=== PATIENT | female | born 1980 | race Caucasian/White ===

== ENCOUNTER 2017-02-12 23:30 | Emergency (ER) | payer OTHER ==
[~2017-02-12] VITALS: Ht 170.2 cm; Wt 104.3 kg
[~2017-02-12 23:30] MED LIST: BACTRIM DS TAB1 EACH PO; CEPHALEXIN500 MG PO; CLINDAMYCIN HC300 MG PO; ESCITALOPRAM OX20 MG PO; LEVOTHYROXINE25 MCG PO; NORCO 5-325 TA1 EACH PO; OMEPRAZOLE20 MG PO; PERCOCET 5-3251 EACH PO; SERTRALINE HCL100 MG PO; SERTRALINE HCL50 MG PO; TRAMADOL HCL50 MG PO; VITAFOL-OB+DHA1 EACH PO; XANAX1 MG PO
[2017-06-29] MEDS ORDERED: XANAX0.5 MG PO (13:00)
== END 2017-02-13 00:08 | disposition home or self-care (01) ==
LOC: ED 23:30
DX: J20.9 Acute bronchitis, unspecified (principal); I10 Essential (primary) hypertension; F41.0 Panic disorder [episodic paroxysmal anxiety]; F17.200 Nicotine dependence, unspecified, uncomplicated; E89.0 Postprocedural hypothyroidism; Z98.51 Tubal ligation status; Z98.890 Other specified postprocedural states; Z88.1 Allergy status to other antibiotic agents; Z88.2 Allergy status to sulfonamides; Z79.899 Other long term (current) drug therapy
CPT/HCPCS: 99282

== ENCOUNTER 2018-01-03 06:50 | Day surgery (SDC) | payer OTHER ==
[~2018-01-03] VITALS: Ht 170.2 cm; Wt 109.3 kg
--- NOTE | ~2018-01-03 | OR ---
[facility] [address] [place] [place], [place] [address] Draft DATE OF OPERATION: 01/03/2018 SURGEON: Susan Samaniego MD APPLICATION PERFORMANCE ENGINEER: Fartun Kim DO PREOPERATIVE DIAGNOSES: Dysmenorrhea, dyspareunia. POSTOPERATIVE DIAGNOSES: Dysmenorrhea, dyspareunia with mild pelvic endometriosis. PROCEDURES: TLH, BSO, cystoscopy. ANESTHESIA: General ET. ESTIMATED BLOOD LOSS: 75 mL. DRAINS: Sr catheter. INDICATIONS AND FINDINGS: The patient is a 37-year-old female, 4, para 4-0-0-3, who has been having worsening problems with pelvic pain and dysmenorrhea as well as dyspareunia and now desires definitive treatment. She has not done well previously with OCPs and Mirena IUD. She has previously been sterilized. At the time of surgery, exam under anesthesia was normal. At the time of laparoscopy, there appeared to be some mild pelvic endometriosis over the right uterosacral and slightly lateral to this. Otherwise, the pelvis appeared normal. DESCRIPTION OF PROCEDURE: The patient was prepped and draped in the dorsal lithotomy position. A weighted speculum was placed and the anterior lip of the cervix was visualized and grasped with a single-tooth tenaculum. The uterus sounded to 9 cm. The endocervical canal was then dilated and a VCare cannula was placed and the balloon inflated at the fundus. The tenaculum and weighted speculum removed and the cup was fitted over the cervix and a PATIENT NAME: SUNSHINE JORGE OPERATIVE REPORT DATE OF : [birth year] REPORT #: [id number] PHYSICIAN: SUSAN SAMANIEGO MD PCP: SHIVANI SARAVIA REPORT IS CONFIDENTIAL AND NOT TO BE RELEASED WITHOUT AUTHORIZATION [facility] [address] [place], [place] [address] Draft locking cap fit into place. Attention was then directed above. The infraumbilical area was injected with 0.5% Marcaine plain. An incision was made with a knife and each layer was serially elevated and incised with the Metzenbaum scissors until the fascia was finally opened and identified. Stay sutures were placed. Following this, the peritoneum was opened bluntly. The Sky cannula was then placed and the balloon inflated and this was also tied into place. Placement of the scope confirmed proper positioning. CO2 was then introduced into the abdomen. Following this, the lateral ports were placed. These were placed lateral sightly below the umbilicus. These areas were transilluminated, injected with the Marcaine. An incision was made with a knife and the trocars were placed under direct vision. The left side port was a 5 mm port and a Veress needle was used on the right side followed by the expanding port. Following this, the pelvis was visualized and the procedure appeared appropriate. The procedure was begun on the patient's left side with serially coagulating and dividing the tube, utero-ovarian, and round ligament. Following this, the peritoneum anteriorly was incised allowing for partial bladder flap. The peritoneum was taken down posteriorly as well. The uterine vessels were then skeletonized and coagulated multiple times. She had the large bundles of vessels. Following this, further dissection was done posteriorly and anteriorly. Attention was then directed to the patient's right side where the same procedure was carried out. Again, the tube, utero-ovarian, and round ligament were serially coagulated and divided. The anterior leaf of the peritoneum was then incised allowing for completion of the bladder flap. The posterior peritoneum was taken down as well. There were multiple uterine vessels on this side as well, which required multiple coagulations and divisions. The pelvis was irrigated and inspected and further dissection was done both posteriorly and anteriorly and it was felt at that point that the specimen could be removed. The Sonicision device was used to separate the specimen. This began posteriorly and wrapped around the left side anteriorly and then again from posteriorly and wrapped around anteriorly from the right side. Following this, the specimen was removed from the vagina. The vaginal canal was then packed with a lap tape contained within a glove. Attention was redirected above and the cuff appeared to be hemostatic. The cuff was then closed with the Endo Stitch. This was begun at the patient's right uterosacral ligament incorporating the vaginal mucosa both posteriorly and anteriorly and this was taken across to the patient's left side and then back to the center. Following this, the tubes were removed on each side using the LigaSure [place] device as well. These were pulled out through the 10 port on the right side. Following this, the pelvis appeared to be hemostatic, but just somewhat raw. Evicel was then dribbled over the pedicles and across the cuff to aid in hemostasis. At this point, the instruments were removed from the abdomen after allowing as much CO2 as possible to escape. The balloons were deflated as well. The fascial incision was re-identified at the umbilicus and closed with a running suture of 0 Vicryl. The stay sutures were tied across as well. The skin incisions were closed with subcuticular sutures of 3-0 Vicryl Rapide. Attention was directed down below and the vaginal pack was removed. The Sr catheter was removed. She had received IV PATIENT NAME: SUNSHINE JORGE OPERATIVE REPORT DATE OF : 80 REPORT #: [id number] PHYSICIAN: SUSAN SAMANIEGO MD PCP: SHIVANI SARAVIA REPORT IS CONFIDENTIAL AND NOT TO BE RELEASED WITHOUT AUTHORIZATION [address], [place] [address] Draft fluorescein and cystoscopy was done using the 30-degree scope. The bladder was filled and seen to have no abnormalities. Both ureteral orifices were identified and clear urine was seen to freely egress from both of these. There was no fluorescein seen however. Following this, the bladder was drained and the Sr catheter replaced. The patient was taken to the recovery room in good condition. All sponge and needle counts were correct. Susan Samaniego MD PJW/MODL /[id number] cc: Fartun Kim DO Copies: FARTUN KIM DO ~ PATIENT NAME: SUNSHINE JORGE OPERATIVE REPORT DATE OF : 80 REPORT #: [id number] PHYSICIAN: SUSAN SAMANIEGO MD PCP: SHIVANI SARAVIA BOOK STORE ASSOCIATE REPORT IS CONFIDENTIAL AND NOT TO BE RELEASED WITHOUT AUTHORIZATION
[~2018-01-03 06:50] MED LIST changes: +XANAX0.5 MG PO
--- NOTE | 2018-01-03 11:48 | NUR ---
01/03/18 1148 Krysten Mckeon 1110 PT ARRIVED IN PACU WITH ORAL AIRWAY IN PLACE AND CHIN LIFT NEEDED. 1121 PT AWAKE. ORAL AIRWAY REMOVED. 1125 OXYGEN REMOVED. SATS 99% ON RA. C/O NAUSEA AND ABD PAIN 8. 1129 PHENERGAN 12.5MG GIVEN SLOW IVP. 1133 FENTANYL 25MCG GIVEN IVP. 1136 NO CHANGE IN PAIN LEVEL. FENTANYL 25MCG GIVEN IVP. 1140 DR AT BEDSIDE. FENTANYL 25MCG GIVEN IVP FOR 01/26 PAIN ON R SIDE OF ABD. WARM AIR ON PT. 1147 NO CHANGE IN PAIN LEVEL. FENTANYL 25MCG GIVEN IVP.
--- NOTE | 2018-01-03 13:09 | NUR ---
C/O PAIN 6/10 REQ MORE. MORPHINE 2MG GIVEN IV. HAS EATEN CRACKERS WILL GET PO MEDS SOON.
--- NOTE | 2018-01-03 13:22 | NUR ---
MORE RELAXED. EYES CLOSED RESP 16. DONT WAKE UP TO GENTLE STIMULATION. ALLOW TO REST. S O AT BEDSIDE.
--- NOTE | 2018-01-03 13:54 | NUR ---
up beside bed. wants catheter out dcd. 650 in mendoza bag. {9mls out of ballon}
[2018-01-03] MEDS ORDERED: IBU800 MG PO (14:19)
[2018-01-03] MEDS ORDERED: PERCOCET 5-3251 EACH PO (14:20)
[2018-01-03] MEDS ORDERED: ZOFRAN ODT4 MG (14:21)
--- NOTE | 2018-01-03 14:48 | NUR ---
PT IS ALERT, ORIENTED AND SUPPORTED BY HER BOY FRIEND SOFI. SHE MENTIONED THAT SHE IS READY FOR SOME RELIEF, AND THAT HER MOTHER WILL BE HERE TOMORROW TO HELP. PT REQUESTED PRAYER, WILL FOLLOW NEEDED
--- NOTE | 2018-01-03 15:05 | NUR ---
1455 UP TO BR VOIDS 200MLS BRIGHT YELLOW URINE. WANTS TO GO HOME. HAS DRANK 600MLS APPLE JUICE. 200MLS WATER AND ATE CRACKERS. RATES PAIN 2/10.
== END 2018-01-03 15:00 | disposition home or self-care (01) ==
LOC: DS 06:50
PROVIDERS: Obstetrics & Gynecology
PROC: 0UT94ZZ Resection of Uterus, Percutaneous Endoscopic Approach (ICD-10-PCS; principal; 2018-01-03 08:30)
PROC: 0UT74ZZ Resection of Bilateral Fallopian Tubes, Percutaneous Endoscopic Approach (ICD-10-PCS; 2018-01-03 08:30)
DX: D25.0 Submucous leiomyoma of uterus (principal); N87.1 Moderate cervical dysplasia; N72 Inflammatory disease of cervix uteri; K57.30 Diverticulosis of large intestine without perforation or abscess without bleeding; E03.9 Hypothyroidism, unspecified; F41.0 Panic disorder [episodic paroxysmal anxiety]; F32.9 Major depressive disorder, single episode, unspecified; A60.00 Herpesviral infection of urogenital system, unspecified; Z88.1 Allergy status to other antibiotic agents; Z88.8 Allergy status to other drugs, medicaments and biological substances; Z98.51 Tubal ligation status; Z87.410 Personal history of cervical dysplasia; Z79.899 Other long term (current) drug therapy
CPT/HCPCS: 00944; J0131; J0694; J1170; J1644; J1885; J2250; J2270; J2405; J2550; J2704; J2765; J3010; J7120

== ENCOUNTER 2018-02-20 12:00 | Day surgery (SDC) | payer OTHER ==
[~2018-02-20] VITALS: Ht 170.2 cm; Wt 109.3 kg
[~2018-02-20 12:00] MED LIST changes: +IBU800 MG PO; +ZOFRAN ODT4 MG
--- NOTE | 2018-02-20 16:05 | NUR ---
02/20/18 1605 Ramonita Fay 1601 PATIENT ARRIVES TO PACU AWAKE, BUT DROWSY. RESP EVEN AND UNLABORED, NC AT 3 LITERS.
--- NOTE | 2018-02-22 09:27 | OR ---
[facility] [address] [place], [place] [address] Signed DATE OF OPERATION: 02/20/2018 SURGEON: Susanne Arevalo MD PREOPERATIVE DIAGNOSIS: Persistent upper abdominal pain, reflux type symptoms. POSTOPERATIVE DIAGNOSES: 1. Poor flap valve and mild distal esophagitis without Landers epithelium. 2. Mild inflammatory change of the duodenal bulb and antrum. PROCEDURE PERFORMED: Esophagogastroduodenoscopy with biopsy. ANESTHESIA: Intravenous sedation, fentanyl 100 mcg, Versed 7 mg. INDICATION: This 37-year-old white woman is a patient of Susan Samaniego MD, and VIOLETA Mcgowan. The patient has had right upper abdominal pain and has been undergoing evaluation for this. Gallbladder ultrasound was performed, which was normal. Pain has been going on for 2-1/2 months. She has other family members, who have had biliary problems. She does not relate that fatty food makes her symptoms worse. She has had diarrhea, which has been evaluated with colonoscopy, which was essentially normal. She was admitted at this time to undergo upper endoscopy to assess for peptic disease. It is notable that she does have clinical reflux symptoms for which Prilosec is helpful. For various reasons, she does not take it on a daily basis, only episodically. She understands the risks of upper endoscopy including but not limited to bleeding, infection, and perforation and wished to proceed. FINDINGS: Mild distal esophagitis was noted without associated Landers epithelium. There was a poor flap valve. There was mild antral gastritis and mild duodenitis, but no ulceration or erosion. CLOtest was negative 15 minutes post procedure. DESCRIPTION OF PROCEDURE: The patient was brought to the endoscopy suite and given topical Hurricaine spray, hypopharyngeal anesthesia and placed in lateral decubitus position. She was given intravenous sedation to the point of slurred speech and nystagmus. Full cardiopulmonary monitoring was maintained. A bite block was placed. Electronically Signed By: SUSANNE AREVALO MD 02/22/18 0927 PATIENT NAME: SUNSHINE JORGE OPERATIVE REPORT DATE OF : [birth year] REPORT #: [id number] PHYSICIAN: SUSANNE AREVALO MD PCP: NEVILLE SARAVIA REPORT IS CONFIDENTIAL AND NOT TO BE RELEASED WITHOUT AUTHORIZATION [facility] [address] [place], [place] [address] Signed The Olympus video upper endoscope was passed in the hypopharynx. The vocal cords appeared normal. Scope was advanced to the esophagus without problem. Throughout its length, it looked reasonably normal except in the distal portion there was mild inflammatory change, but not much. There was no sign of Landers epithelium. The scope was advanced to the stomach, which was insufflated with air. Rugal folds appeared normal. The antrum showed mild and minimal edema and inflammatory change. Pylorus was normal, scope was passed through into the duodenum, which showed duodenal bulb, minimal inflammation without erosion or ulcer. There was some mild nodular change. The scope was advanced to the 2nd and 3rd portions of the duodenum, which appeared normal. Biopsies were taken of the duodenum and the bulbar portion of the duodenum as well. The scope was drawn to the stomach where biopsies were taken of the antrum. Retroflexed view showed a poor flap valve and no sign of large hiatal hernia. CLOtest biopsies were taken in addition to antral biopsies. The scope was withdrawn to the distal esophagus where biopsies were taken there and subsequently to the mid esophagus. The scope was carefully withdrawn and removed and the patient was taken to recovery room in good condition. CONCLUDING DIAGNOSIS: Mild distal esophagitis with poor flap valve. No evidence of Landers epithelium. Mild bulbar duodenitis. PLAN: I have advised her to take Prilosec on a daily basis. We will see her back in the office in 4 weeks or so and review her overall situation. She may ultimately require cholecystectomy for biliary disease after all depends on findings. MD HANNAH Mckeon/CARLOSL /[id number] cc: MD Neville Ybarra FNP Electronically Signed By: SUSANNE AREVALO MD 02/22/18 0927 PATIENT NAME: SUNSHINE JORGE OPERATIVE REPORT DATE OF : [birth year] REPORT #: [id number] PHYSICIAN: SUSANNE AREVALO MD PCP: NEVILLE SARAVIA REPORT IS CONFIDENTIAL AND NOT TO BE RELEASED WITHOUT AUTHORIZATION [facility] [address] [place] [place] [address] Signed Copies: SUSAN SAMANIEGO MD, WADE R FNP ~ Electronically Signed By: SUSANNE AREVALO MD 02/22/18 0927 PATIENT NAME: SUNSHINE JORGE OPERATIVE REPORT DATE OF : 80 REPORT #: [id number] PHYSICIAN: SUSANNE AREVALO MD PCP: NEVILLE SARAVIA REPORT IS CONFIDENTIAL AND NOT TO BE RELEASED WITHOUT AUTHORIZATION
== END 2018-02-20 16:30 | disposition home or self-care (01) ==
LOC: DS 12:00 → OPS 12:00 → DS 13:00 → OPS 16:30
PROVIDERS: Surgery
PROC: 0DB78ZX Excision of Stomach, Pylorus, Via Natural or Artificial Opening Endoscopic, Diagnostic (ICD-10-PCS; 2018-02-20)
PROC: 0DB28ZX Excision of Middle Esophagus, Via Natural or Artificial Opening Endoscopic, Diagnostic (ICD-10-PCS; 2018-02-20)
PROC: 0DB38ZX Excision of Lower Esophagus, Via Natural or Artificial Opening Endoscopic, Diagnostic (ICD-10-PCS; 2018-02-20)
PROC: 0DB98ZX Excision of Duodenum, Via Natural or Artificial Opening Endoscopic, Diagnostic (ICD-10-PCS; principal; 2018-02-20 13:00)
DX: K29.50 Unspecified chronic gastritis without bleeding (principal); K29.80 Duodenitis without bleeding; K21.0 Gastro-esophageal reflux disease with esophagitis; I10 Essential (primary) hypertension; E03.9 Hypothyroidism, unspecified; E66.9 Obesity, unspecified; Z88.1 Allergy status to other antibiotic agents; Z88.8 Allergy status to other drugs, medicaments and biological substances; Z79.899 Other long term (current) drug therapy; Z87.891 Personal history of nicotine dependence; Z98.890 Other specified postprocedural states; Z68.36 Body mass index [BMI] 36.0-36.9, adult
CPT/HCPCS: 88305; G0500; J2250; J3010; J7120

== ENCOUNTER 2018-04-19 09:00 | Day surgery (SDC) | payer OTHER ==
[~2018-04-19] VITALS: Ht 170.2 cm; Wt 102.1 kg
--- NOTE | 2018-04-19 11:43 | NUR ---
04/19/18 1143 Paulina Ly 1129 PT NONAROUSABLE TO PAINFUL STIMULI, ORAL AIRWAY IN PLACE, RESP EVEN AND UNLABORED. 6L VIA MASK IN PLACE. VSS. 1134 PT BEGINS MOVING TO TACTILE STIMULI AND RECHING FOR HER FACE, ORAL AIRWAY REMOVED, PT REORIENTED TO PACU. O2 MASK REMOVED, O2 SAT 100%. 1138 MD AT BEDSIDE PT OPENED EYES TO VERBAL STIMULI THEN BACK TO SLEEP
[2018-04-19] MEDS ORDERED: MAPAP325 MG PO (11:59)
[2018-04-19] MEDS ORDERED: OXYCODON-ACETA1 EAC2 PO (11:59)
[2018-04-19] MEDS ORDERED: IBUPROFEN600 MG PO (11:59)
--- NOTE | 2018-04-19 12:52 | NUR ---
PT HAD BEEN TAKEN TO SURGERY, HER MOTHER WAS WAITING IN RM. SAID PT WAS READY FOR RELIEF, AND WILL TAKE HER HM FOLLOWING SURGERY. WILL FOLLOW NEEDED
--- NOTE | 2018-04-19 13:36 | NUR ---
1240: PATIENT BACK IN DAY SURGERY ROOM FROM PACU. C/O PAIN IN RIGHT UPPER QUADRANT OF ABDOMEN. DENIES NAUSEA. GIVEN ICE WATER, APPLE JUICE AND PUDDING. IV SITE WNL. ABDOMEN X 4 SITES WITH STERI STRIPS. ALL 4 SITES HAVE SCANT AMOUNTS OF RED DRAINAGE. VS CHECKED. SCDs ON. CALL LIGHT WITHIN REACH.
--- NOTE | 2018-04-19 13:58 | NUR ---
1355: PATIENT CONTINUES TO C/O RUQ ABDOMINAL PAIN. MEDICATED FOR PAIN WITH IV MORPHINE. PATIENT TOLERATED PUDDING AND APPLE JUICE. GIVEN MORE JUICE AND PUDDING. PRESCRIPTION GIVEN TO MOTHER TO GO HAVE FILLED. CALL LIGHT WITHIN REACH.
--- NOTE | 2018-04-19 14:37 | NUR ---
1430: PATIENT ASSISTED OOB AND TO BATHROOM. GAIT STEADY. VOID WITHOUT DIFFICULTY. GAIT STEADY BACK TO ROOM. TOP MIDLINE TROCAR SITE OOZING BLOODY DRAINAGE, SITE REINFORCED WITH 2X2 GUAZE AND TAPE. PATIENT GETTING DRESSED.
--- NOTE | 2018-04-19 15:05 | NUR ---
1450: PATIENT DRESSED AND READY TO GO. DISCHARGE INSTRUCTIONS GIVEN TO PATIENT. IV DC'D WNL. TIP INTACT. DRESSING APPLIED. PATIENT DISCHARGED TO HOME WITH DAUGHTER VIA WHEELCHAIR.
--- NOTE | 2018-04-23 08:13 | OR ---
[facility] [address], [place] [address] Signed DATE OF OPERATION: 04/19/2018 SURGEON: Susanne Arevalo MD PREOPERATIVE DIAGNOSES: 1. Chronic acalculous cholecystitis. 2. Obesity. POSTOPERATIVE DIAGNOSES: 1. Chronic acalculous cholecystitis. 2. Obesity. PROCEDURES: 1. Laparoscopic cholecystectomy with intraoperative cholangiogram. 2. Surgeon-directed fluoroscopy. ANESTHESIA: General endotracheal, Ephraim Esmer, HEEL LIFT GOUGER, and local 10 mL of 0.25% Marcaine with epinephrine. INDICATION: This 37-year-old obese white woman is a patient of Neville Tripathi, and Dr. Susan Samaniego. She has had persistent right upper abdominal pain. Gallbladder evaluation showed no sign of stones or gallbladder wall thickening. She has undergone upper endoscopy, which did not show significant pathology to account for persistent pain. A CCK-HIDA test was obtained. Actually a fat induced HIDA scan with Ensure drink, which did initiate reproduction of her symptoms quite markedly, though the ejection fraction was normal. It is notable that she has significant family history of acalculous cholecystitis including sister, brother, father, and mother, all of whom had cholecystectomy for similar symptoms. She is admitted at this time to undergo cholecystectomy for presumed acalculous cholecystitis. She understands the risks of bleeding, infection, bile duct injury, need for open procedure and importantly failure to cure her symptoms. She understands that and she wished to proceed. FINDINGS: The gallbladder was chronically inflamed. There were few adhesions to its undersurface. The liver itself had mild fatty infiltration. The gallbladder once excised showed chronic inflammatory change of the mucosa, but no sign of stones and no neoplasm. Cholangiogram was normal. There were no other findings of concern. Electronically Signed By: SUSANNE AREVALO MD 04/23/18 0813 PATIENT NAME: SUNSHINE JORGE OPERATIVE REPORT DATE OF : [birth year] REPORT #: [id number] PHYSICIAN: SUSANNE AREVALO MD PCP: NEVILLE TRIPATHI REPORT IS CONFIDENTIAL AND NOT TO BE RELEASED WITHOUT AUTHORIZATION [facility] [address], [place] [address] Signed DESCRIPTION OF PROCEDURE: The patient was brought to the operating room and given a general endotracheal anesthetic. Preoperative antibiotic Ancef was given. Sequential compression device stockings were used and heparin subcutaneously administered. After satisfactory general endotracheal anesthesia, the abdomen was prepared with a chlorhexidine solution and draped sterilely. An infraumbilical incision was made and using an open Sky cannula technique, the abdomen was entered and pneumoperitoneum achieved to level 14 mmHg of carbon dioxide gas. Intraabdominal inspection showed no sign of ascites or carcinomatosis. The gallbladder was obscured from view initially. The liver had mild fatty infiltration. Three additional trocars were placed in usual configuration in the subxiphoid, right midclavicular, and right anterior axillary line. The gallbladder was elevated and a few adhesions were taken down with blunt dissection. The gallbladder was elevated more fully and using blunt and electrocautery dissection, the triangle of Calot was dissected free ultimately identifying well the cystic artery and cystic duct. Photographs were taken. A clip was applied across gallbladder cystic duct junction and transverse choledochotomy made in the cystic duct. Retrograde milking of the cystic duct showed no sign of stone, only clear bile. An George type cholangiocatheter was insinuated into the cystic duct allowing for intraoperative cholangiography. Free flow of contrast was noted into the biliary tree with prompt emptying into the duodenum. A conventional biliary anatomy was noted. There was no filling defect or other abnormality. Catheter was removed and the cystic duct was triply clipped and divided and the gallbladder dissected free in a retrograde fashion using electrocautery. The gallbladder was extracted through the infraumbilical port site without problem, opened on the back table by the circulating nurse and found to have chronic inflammatory change of the mucosa. There were no stones. No sign of neoplasm. Irrigation was undertaken in subhepatic space with no sign of bleeding, bile leak or other problem. Upon removal of the epigastric port, there was apparent persistent oozing of blood and on that basis, a Ariel-Phillip device was used to secure the fascia completely allowing for complete hemostasis. An 0 Vicryl suture was used for this purpose. The other trocars were removed under direct visualization showing no sign of bleeding. All wounds were copiously irrigated with saline solution and the infraumbilical fascial incision was reapproximated with interrupted 0 Vicryl suture. A 10 mL of 0.25% Marcaine with epinephrine was injected in the incisions for postoperative analgesic benefit. The skin was then closed with interrupted 3-0 Vicryl. Steri-Strips were applied. Electronically Signed By: SUSANNE AREVALO MD 04/23/18 0813 PATIENT NAME: SUNSHINE JORGE OPERATIVE REPORT DATE OF : [birth year] REPORT #: [id number] PHYSICIAN: SUSANNE AREVALO MD PCP: NEVILLE TRIPATHI REPORT IS CONFIDENTIAL AND NOT TO BE RELEASED WITHOUT AUTHORIZATION [address] [address] Signed The patient tolerated the procedure well. Blood loss was minimal. Complications none. MD HANNAH Mckeon/CARLOSL /[id number] cc: VIOLETA Nieto MD Copies: NEVILLE TRIPATHI PATRICIA J MD ~ Electronically Signed By: SUSANNE AREVALO MD 04/23/1813 PATIENT NAME: SUNSHINE JORGE OPERATIVE REPORT DATE OF : [birth year] REPORT #: [id number] PHYSICIAN: SUSANNE AREVALO MD PCP: NEVILLE TRIPATHI REPORT IS CONFIDENTIAL AND NOT TO BE RELEASED WITHOUT AUTHORIZATION
== END 2018-04-19 14:55 | disposition home or self-care (01) ==
LOC: DS 09:00
PROVIDERS: Surgery
PROC: BF13YZZ Fluoroscopy of Gallbladder and Bile Ducts using Other Contrast (ICD-10-PCS; 2018-04-19)
PROC: 0FT44ZZ Resection of Gallbladder, Percutaneous Endoscopic Approach (ICD-10-PCS; principal; 2018-04-19 09:45)
DX: K81.1 Chronic cholecystitis (principal); E66.9 Obesity, unspecified; K44.9 Diaphragmatic hernia without obstruction or gangrene; Z88.1 Allergy status to other antibiotic agents; Z88.8 Allergy status to other drugs, medicaments and biological substances; Z83.79 Family history of other diseases of the digestive system; Z87.891 Personal history of nicotine dependence; Z79.899 Other long term (current) drug therapy; Z68.35 Body mass index [BMI] 35.0-35.9, adult
CPT/HCPCS: 00790; 74300; 88304; J0690; J1100; J1170; J1644; J1885; J2250; J2270; J2405; J2704; J2765; J3010; J7120; Q9967

== ENCOUNTER 2021-01-06 19:21 | Emergency (ER) | payer OTHER ==
[~2021-01-06] VITALS: Ht 170.2 cm; Wt 98.0 kg
[~2021-01-06 19:21] MED LIST changes: +ALPRAZOLAM1 MG PO; +CEPHALEXIN500 M1 PO; +IBUPROFEN600 MG PO; +MAPAP325 MG PO; +ONDANSETRON ODT8 MG PO; +OXYCODON-ACETA1 EAC2 PO; +PYRIDIUM200 MG PO; +TRAZODONE HCL100 MG PO
[2021-01-06] MEDS ORDERED: PREDNISONE20 MG PO (23:09)
== END 2021-01-06 23:25 | disposition home or self-care (01) ==
LOC: ED 19:21
DX: J01.90 Acute sinusitis, unspecified (principal); Z20.822 Contact with and (suspected) exposure to COVID-19; I10 Essential (primary) hypertension; F43.10 Post-traumatic stress disorder, unspecified; E03.9 Hypothyroidism, unspecified; Z87.891 Personal history of nicotine dependence; Z88.8 Allergy status to other drugs, medicaments and biological substances; Z88.1 Allergy status to other antibiotic agents; Z88.2 Allergy status to sulfonamides; Z79.899 Other long term (current) drug therapy
CPT/HCPCS: 99284; C9803; J7512; U0003

== ENCOUNTER 2021-10-28 19:39 | Emergency (ER) | payer OTHER ==
[~2021-10-28] VITALS: Ht 170.2 cm; Wt 98.0 kg
[~2021-10-28 19:39] MED LIST changes: +PREDNISONE20 MG PO
--- OUTSIDE RECORDS SUMMARY | 2021-10-28 19:42 | XMS ---
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 EJuliette VISIT COUNT (12 MO.) 2 PAULINE Orozco TOTAL 2 NOTE: Visits indicate total known visits. ED/UCC VISIT TRACKING (12 MO.) 10/28/2021 19:40 PAULINE Preciado OR TYPE: Emergency COMPLAINT: - FLANK PAIN 01/06/2021 19:21 PAULINE [facility] [place] TYPE: Emergency COMPLAINT: - SOB DIAGNOSES: - Acute sinusitis, unspecified - Post-traumatic stress disorder, unspecified - Allergy status to other drugs, medicaments and biological substances - Allergy status to other antibiotic agents - Other intermediate teacher (current) drug therapy - Hypothyroidism, unspecified - Essential (primary) hypertension - Allergy status to sulfonamides - Personal history of nicotine dependence INPATIENT VISIT TRACKING (12 MO.) No inpatient visits to display in this time frame [email or web address]
[2021-10-28] MEDS ORDERED: PYRIDIUM200 MG PO (21:46)
[2021-10-28] MEDS ORDERED: HYDROCODON-ACE1 EA10 PO (21:46)
== END 2021-10-28 22:07 | disposition home or self-care (01) ==
LOC: ED 19:39
DX: N12 Tubulo-interstitial nephritis, not specified as acute or chronic (principal); I10 Essential (primary) hypertension; E03.9 Hypothyroidism, unspecified; Z87.891 Personal history of nicotine dependence; Z88.8 Allergy status to other drugs, medicaments and biological substances; Z79.899 Other long term (current) drug therapy
CPT/HCPCS: 36415; 74176; 80048; 81001; 85025; 87088; 96374; 99284-25; A9270; J1885

== ENCOUNTER 2024-04-16 17:38 | Inpatient (IN) | payer OTHER ==
[~2024-04-16] VITALS: Ht 170.2 cm; Wt 94.0 kg
[~2024-04-16 17:38] MED LIST changes: +HYDROCODON-ACE1 EA10 PO
[2024-04-16] MEDS ORDERED: KETOROLAC TROMETHAMINE 15 MG/ML VIAL IV ONE (19:15)
[2024-04-16] MEDS ORDERED: ondansetron HCL 4 MG/2 ML VIAL IV PRN (19:15)
[2024-04-16 19:18] LABS: BILIRUBIN, URINE POSITIVE (negative); BLOOD/HGB, URINE NEGATIVE (Negative); KETONE, URINE TRACE (Negative); LEUK ESTERASE, URINE NEGATIVE (negative); NITRITE, URINE NEGATIVE (negative); PH, URINE 5.5 (5-7)
[2024-04-16 19:37] LABS: BASOPHILS 0.9 % (0-2); EOSINOPHILS 0.3 % (0-6); HEMATOCRIT 43.7 % (35.0-50.0); HEMOGLOBIN 15.2 g/dL (12.0-18.0); MCH 31.5 (27-36); MCHC 34.6 g/dl (30-36); MCV 90.8 fl (81-99); NEUTROPHILS 82.8 % (39-80); PLATELET COUNT 237 K/uL (140-440); RBC 4.82 M/ul (4.3-5.7); RDW 12.8 (10.5-15.0)
[2024-04-16 19:46] LABS: ANION GAP 12.2 (7-21); BILIRUBIN, TOTAL 1.2 ng/dL (0.2-1.0); BUN/CREATININE RATIO 9.75 (6.0-28.6); CALCIUM 9.3 mg/dL (8.5-10.1); CREATININE, SERUM 0.82 mg/dL (0.55-1.02); POTASSIUM 3.2 mmol/L (3.5-5.1)
[2024-04-16] MEDS ORDERED: MORPHINE SULFATE 4 MG/ML VIAL IV ONE (20:45)
[2024-04-16] MEDS ORDERED: ACETAMINOPHEN 325 MG TAB PO PRN (21:00)
[2024-04-16] MEDS ORDERED: HYDROmorphone HCL 1 MG/ML SYR IV PRN ×2 (21:00→21:45)
[2024-04-16] MEDS ORDERED: bisacodyL 10 MG SUPP PR PRN (21:00)
[2024-04-16] MEDS ORDERED: LACTATED RINGER'S 1,000 ML IV SCH (21:00)
[2024-04-16] MEDS ORDERED: PROCHLORPERAZINE EDISYLATE 10 MG/2 ML VIAL IV PRN (21:00)
[2024-04-16] MEDS ORDERED: MELATONIN 3 MG TAB PO PRN (21:00)
[2024-04-16 21:58] VITALS: BP 152/87
[2024-04-16] MEDS ORDERED: PIPERACILLIN/TAZOBACTAM 3.375 GM in DEXTROSE 5% 100 ML IV SCH (22:00)
[2024-04-16] MEDS ORDERED: PIPERACILLIN/TAZOBACTAM 3.375 GM VIAL ONE (22:12)
[2024-04-16] MEDS ORDERED: DICYCLOMINE HCL 10 MG CAP PO PRN (22:15)
[2024-04-16 23:00] VITALS: BP 155/93
--- NOTE | 2024-04-16 23:08 | NUR ---
PATIENT ARRIVED TO THE FLOOR VIA STRETCHER. PATIENT ABLE TO AMBULATE FROM [facility] IN [place] TO HOSPITAL BED. PATIENTS VITALS TAKEN AND RECORDED. PATIENTS ADMISSION COMPLETED. ASSEMENT COMPLETED. MD AT [facility]. NEW VERBAL ORDERS PLACED FOR MD AND VERIFIED USING REPEATBACK METHOD. PATIENT RATES PAIN AT A 7/10, PRN PAIN MEDICATION GIVEN PER ORDER. PATIENT DENIES ANY NAUSEA. IV FLUIDS INFUSING PER ORDER. IV ABX INFUSING PER ORDER. PATIENT UPDATED ON PLAN OF CARE BY MD AND THIS RN. ALL QUESTIONS ANSWERED. PATIENT IS ON RA. PATIENT IS IND IN ROOM. PATIENT PROVIDED JELLO, WATER AND APPLE JUICE. PATIENT DENIES ANY FURTHER NEEDS. CALL LIGHT IN REACH.
[2024-04-16] MEDS ORDERED: hydrOXYzine pamoate 25 MG CAP PO PRN (23:15)
[2024-04-16] MEDS ORDERED: LORazepam 2 MG/ML VIAL IV PRN (23:15)
[2024-04-16] MEDS ORDERED: POTASSIUM CHLORIDE 40 MEQ,LIDOCAINE HCL 1% 40 MG in DEXTROSE 5% 250 ML IV ONE (23:15)
[2024-04-17] VITALS (9 sets, daily range): BP systolic 125–146; BP diastolic 59–83
[2024-04-17] MEDS ORDERED: POTASSIUM CHLORIDE 10 MEQ/100 ML BAG IV SCH
--- NOTE | 2024-04-17 00:48 | NUR ---
PATIENT IS RESTING IN BED. PATIENT REPORTS 7/10 ABD PAIN AND CRAMPING, PRN MEDS GIVEN PER ORDER. PATIENT PROVIDED WARM PACK FOR LOWER ABD. PATIENT DENIES ANY NAUSEA. PATIENTS IV INFUSING PER ORDER. PATIENT DENIES ANY FURTHER NEEDS. CALL LIGHT IN REACH.
--- NOTE | 2024-04-17 01:30 | NUR ---
PATIENT IS RESTING IN BED. PATIENT REPORTS 7/10 ABD PAIN, PRN PAIN MEDICATION GIVEN PER ORDER. PATIENT DENIES ANY NAUSEA. PATIENTS IV INFUSING PER ORDER. PATIENT DENIES ANY NEEEDS. CALL LIGHT IN REACH.
--- NOTE | 2024-04-17 02:24 | NUR ---
PATIENT IS RESTING IN BED ON LEFT SIDE. PATIENTS IV INFUSING PER ORDER. PATIENT SARAH ANY PAIN OR NAUSEA. PATIENT DENIES ANY NEEDS AT THIS TIME. CALL LIGHT IN REACH.
--- NOTE | 2024-04-17 03:33 | NUR ---
PATIENT IS RESTING IN BED. IV INFUSING PER ORDER. PATIENT DENIES ANY PAIN OR NAUSEA. CALL LIGHT IN REACH.
--- NOTE | 2024-04-17 04:11 | NUR ---
PATIENT IS REPORTS 7/10 ABD PAIN, PRN PAIN MEDICATION GIVEN PER ORDER. PATIENT DENIES ANY NAUSEA. PATIENTS IV INFUSING PER ORDER. PATIENT PROVIDED WARM PACK FOR LOW ABD. PATIENTS VITALS TAKEN AND RECORDED. INTAKE AND OUTPUT RECORDED. PATIENT DENIES ANY FURTHER NEEDS. CALL LIGHT IN REACH.
[2024-04-17 05:36] LABS: BASOPHILS 0.6 % (0-2); EOSINOPHILS 1.2 % (0-6); HEMATOCRIT 36.6 % (35.0-50.0); LYMPHOCYTES 13.2 % (24-44); MCHC 35.6 g/dl (30-36); MCV 89.9 fl (81-99); MONOCYTES 7.8 % (0-12); NEUTROPHILS 77.2 % (39-80); PLATELET COUNT 191 K/uL (140-440); RBC 4.07 M/ul (4.3-5.7); RDW 12.8 (10.5-15.0)
[2024-04-17 05:43] LABS: ANION GAP 12.8 (7-21); BUN/CREATININE RATIO 10.38 (6.0-28.6); CALCIUM 8.4 mg/dL (8.5-10.1); CREATININE, SERUM 0.77 mg/dL (0.55-1.02); POTASSIUM 3.8 mmol/L (3.5-5.1)
[2024-04-17] MEDS ORDERED: PIPERACILLIN/TAZOBACTAM 3.375 GM VIAL ONE (06:04)
--- NOTE | 2024-04-17 06:33 | NUR ---
PATIENT IS RESTING IN BED AND REPORTS 6/10 ABD PAIN, PRN PAIN MEDICATION GIVEN PER ORDER. PATIENT PROVIDED WARM PACK FOR ABD. PATIENTS AM IV ABX INFUSING PER ORDER. PATIENT DENIES ANY FURTHER NEEDS. CALL LIGHT IN REACH.
--- NOTE | 2024-04-17 07:40 | NUR ---
REPORT RECEIVED FROM NIGHT RN - SURGEON IN ROOM TALKING WITH PT.
[2024-04-17] MEDS ORDERED: DESVENLAFAXINE50 M3 PO (07:47)
[2024-04-17] MEDS ORDERED: HYDROXYZINE HCL25 MG PO (07:48)
--- NOTE | 2024-04-17 08:49 | NUR ---
ASSESSMENT COMPLETE - PT RESTING IN BED AND STATES BROTH TASTES "VERY GOOD". PAIN CONSISTENT DESPITE IMPROVING LAB WORK. OTHERWISE ASSESSMENT BENIGN.
--- NOTE | 2024-04-17 08:56 | NUR ---
Patient was still sleeping upon entering the room. They requested apple juice, fresh ice water, and for the curtain to be opened. No other cares were requested.
[2024-04-17] MEDS ORDERED: VENLAFAXINE HCL 75 MG CAPCR PO SCH (09:00)
[2024-04-17] MEDS ORDERED: PANTOPRAZOLE SODIUM 40 MG/10 ML VIAL IV SCH (09:00)
[2024-04-17] MEDS ORDERED: ENOXAPARIN SODIUM 40 MG/0.4 ML SYR SUB-Q SCH (09:00)
--- NOTE | 2024-04-17 10:35 | NUR ---
RN IN ROOM TO RESPOND TO IV ALARM - PT RESTING ON SIDE, REPORTS PAIN IS IMPROVED. HEAT PACK PROVIDED FOR COMFORT. ABX INFUSION COMPLETE.
--- NOTE | 2024-04-17 10:43 | CONS ---
[facility] [address], [place] [address] Signed DATE OF CONSULTATION: 04/17/2024 CHIEF COMPLAINT: Left lower quadrant abdominal pain. HISTORY OF PRESENT ILLNESS: Sunshine is a 43-year-old obese female, who has a history of irritable bowel syndrome and various abdominal complaints. She had upper and lower endoscopy back in [address] Tolliver. She is known to have some mild sigmoid diverticulosis. Her upper endoscopy was not particularly concerning. She apparently failed her HIDA scan and had a laparoscopic cholecystectomy that same year. The year before she had a laparoscopic-assisted hysterectomy with Dr. Susan Samaniego and both ovaries remain in situ. She has developed left lower quadrant abdominal pain and ended up coming to the emergency room for evaluation. Vital signs were fine. She was tender in the left lower quadrant. Initially, the white count was up at 13.7, but it is down to 9.7. The CT scan showed some mild thickening and inflammation in the mid sigmoid colon and some moderate inflammation around the left ovary. She was admitted overnight to our Internal Medicine Service and started on Zosyn. This morning, she was sound asleep, but easily awaken. I have been asked to see her as a local general surgeon on-call. PAST MEDICAL HISTORY: Diverticulosis, kidney stones, hypertension, anxiety, panic attacks, PTSD, hypothyroidism, and irritable bowel syndrome. PAST SURGICAL HISTORY: Includes colonoscopy in [address] Tolliver, an EGD in [address] Tolliver, laparoscopic cholecystectomy [place] [address] Tolliver, laparoscopic-assisted hysterectomy [place] [address] Samaniego with both ovaries remaining. She has had left thyroid surgery, sinus surgery, wisdom teeth extraction, tonsillectomy and bilateral tubal ligation. SOCIAL HISTORY: She is down to a few cigarettes a day. She has an occasional drink. She rarely uses marijuana. She is and has three children, one still at home. 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 Ileana Stafford is her nurse practitioner. She prefers the [facility]. Her mother is Carolyn Lainez at [phone]. FAMILY HISTORY: Mom has diverticulosis. REVIEW OF SYSTEMS: She had 10 systems reviewed and she told me about her various surgeries. ALLERGIES: Electronically Signed By: LUL ARROYO MD 04/17/24 1043 PATIENT NAME: SUNSHINE JORGE CONSULTATION DATE OF : 80 REPORT #: [id number] PHYSICIAN: LUL ARROYO MD PCP: ILEANA STAFFORD REPORT IS CONFIDENTIAL AND NOT TO BE RELEASED WITHOUT AUTHORIZATION [facility] [address], [place] [address] Signed Bactrim and sertraline. MEDICATIONS: Alprazolam p.r.n. PHYSICAL EXAMINATION: VITAL SIGNS: Her blood pressure is 129/70, heart rate 60, respiratory rate 15, temperature is 98.0. She is 100% on room air. She is 5 feet 7 inches at 94 kg with body mass index at 32. GENERAL: Sunshine is a 43-year-old female, who appears healthy and at her stated age. She is not systemically ill or toxic. LUNGS: Clear to auscultation bilaterally. HEART: Regular rate and rhythm without murmurs. ABDOMEN: Obese but soft. She is tender in the left lower quadrant. LABORATORY DATA: Her white blood cell count was 13.7, is now 9.7;, hemoglobin is 13. Electrolytes unremarkable. Liver function tests are negative. Albumin is 4.0, total bilirubin is slightly up at 1.2. Urine specific gravity was elevated. Her beta-hCG is negative. RADIOGRAPHIC STUDIES: CT scan of the abdomen and pelvis is reviewed along with the report. Her spleen is slightly enlarged at 15.6 cm. However, the liver is unremarkable. She has some mild thickening around the mid sigmoid colon and some moderate inflammation around that left ovary. ASSESSMENT AND PLAN: Sunshine is a 43-year-old obese female, who presents with what appears to be her 1st episode of diverticulitis. She has been admitted and started on Zosyn. She already feels much better this morning. I think she will do fine most likely on conservative treatment. I will be following along with the medical service. I have reviewed this with Sunshine. She has expressed understanding and agrees with the above plan. Lul Arroyo MD ALB/MODL /[id number] Electronically Signed By: LUL ARROYO MD 04/17/24 1043 PATIENT NAME: SUNSHINE JORGE CONSULTATION DATE OF : 80 REPORT #: [id number] PHYSICIAN: LUL ARROYO MD PCP: ILEANA STAFFORD REPORT IS CONFIDENTIAL AND NOT TO BE RELEASED WITHOUT AUTHORIZATION [place] [phone] Signed cc: ATTILA Flowers MD Copies: LUL ARROYO MD ~ Electronically Signed By: LUL ARROYO MD 04/17/24 1043 PATIENT NAME: SUNSHINE JORGE MARTINEZ CONSULTATION DATE OF : 80 REPORT #: [id number] PHYSICIAN: LUL ARROYO MD PCP: ILEANA STAFFORD REPORT IS CONFIDENTIAL AND NOT TO BE RELEASED WITHOUT AUTHORIZATION
--- NOTE | 2024-04-17 11:48 | NUR ---
RN IN ROOM TO RESPOND TO CALL LIGHT - PT REPORTS PAIN INCREASING TO 7/10 AND REQUESTS PAIN MEDICATION. PT ALSO REPORTS NAUSEA, UNSURE IF ITS BECUASE SHE HAS "EMPTY STOMACH" FEELING. PRN ADMINISTERED. CHICKEN BROTH PROVIDED FOR PT TO SIP. PT TOLERATED CLEARS WITH BREAKFAST WITHOUT EMESIS OR NAUSEA. CALL LIGHT IN REACH.
--- NOTE | 2024-04-17 11:54 | NUR ---
Patient reported lower abdominal pain. VASYL Meier was notified. Patient asked for a cup of ice for apple juice and nothing else.
[2024-04-17] MEDS ORDERED: PHARMACY RENAL DOSE ADJUSTMENT 1 DOSE MISC PO SCH (12:00)
--- NOTE | 2024-04-17 12:15 | NUR ---
PT USES CALL LIGHT TO REPORT LARGE EMESIS IN BATHROOM - STATES IT WAS ALL FLUID SINCE THIS AM. EDUCATION PROVIDED TO PT TO SLOW INTAKE TO PREVENT ILEUS.
--- NOTE | 2024-04-17 12:43 | NUR ---
ALERT AND ORIENTED SITTING UP IN BED. STATES SHE LIVES IN HOUSE WITH STAIRS BUT DOES OK WITH THEM AT BASELINE. HAS NO DME. PATIENT DRIVES SELF. NO FINANCIAL ISSUES WITH PAYING UTILITES, GETTING FOOD OR MEDICATION. STATES SHE HAS NO NEEDS AT HOME. PLANS TO RETURN HOME WITH SIGNIFICANT OTHER WHEN MEDICALLY CLEARED. HER ONLY ISSUE IS HER PCP IS VIOLETA TINEO, WHO IS NO LONGER AT HER CLINIC AND SHE WOULD LIKE TO REMAIN IN THE CLINIC. WILL NOTIFY CLINIC AND SCHEDULE FOLLOW-UP WHEN READY FOR DC.
--- NOTE | 2024-04-17 12:49 | NUR ---
UR CLINICAL REVIEW[place] [facility] [place] DIVERTICULITIS ODS [facility]O INPT 04/16/24 @ 2100 ORDER MATCHES REG CLINICALS FAXED TO [facility] FOR AUTH REVIEW DISCHARGE TO HOME. MAY NEED MULTIPLE DAYS OF IV ABX. 04/19/24
--- NOTE | 2024-04-17 13:31 | NUR ---
RN IN ROOM TO RESPOND TO IV ALARM - NEW IVF HUNG. PT REQUESTS ADDITIONAL NAUSEA MEDICATION - ADMINISTERED. PAIN MINIMALLY IMPROVED.
--- NOTE | 2024-04-17 16:27 | NUR ---
RN ROUNDING ON PT - RESTING IN BED WATCHING TV WITH FAMILY AT BEDSIDE. PT DENIES NEED FOR PAIN MEDICATION AT THIS TIME, NAUSEA IMPROVED AFTER COMPAZINE.
--- NOTE | 2024-04-17 16:34 | NUR ---
Patient had family in the room visiting. They requested and were given fresh ice water. No other cares were asked for.
--- NOTE | 2024-04-17 17:11 | NUR ---
PT USES CALL LIGHT TO REPORT INCREASED PAIN - DILAUDID ADMINISTERED, PT HESITANT FOR PO TYLENOL AND BENTYL R/T NAUSEA. SIPPING BROTH, CAUTIONED TO CONTINUE SLOW INTAKE. CALL LIGHT IN REACH.
--- NOTE | 2024-04-17 18:58 | NUR ---
Patient was resting upon entering the room. They got up and used the bathroom. Patient requested to have something to help them sleep. VASYL Meier was informed and she said that she would pass it on to manager scientific.
--- NOTE | 2024-04-17 19:34 | NUR ---
RECEIVED REPORT FROM DAY SHIFT RN. PATIENT IS RESTINGIN BED. PATIENT DENIES ANY NEEDS. CALL LIGHT IN REACH.
--- NOTE | 2024-04-17 20:34 | NUR ---
PATIENTS VITALS TAKEN AND RECORDED. INTAKE AND OUTPUT RECORDED. PATIENT REPORTS 7/10 PAIN IN HER LLQ, PRN PAIN MEDICATION GIVEN PER ORDER. PATIENT DENIES ANY NAUSEA. WARM PACK PROVIDED. PATIENT GIVEN FRESH ICE WATER AND TEA. PATIENTS ASSESMENT COMPLETED. PATIENT DENIES ANY FURTHER NEEDS AT THIS TIME. CALL LIGHT IN REACH. IV INFUSING PER ORDER.
[2024-04-17] MEDS ORDERED: TRAZODONE HCL 50 MG TAB PO PRN (20:45)
--- NOTE | 2024-04-17 21:50 | NUR ---
call light answered, iv site sl, wrapped for shower. shower and hygiene supplies provided. bed linen changed and pt instructed to call staff when done.
--- NOTE | 2024-04-17 22:27 | NUR ---
call light answered, shower completed. pt resting in bed, iv site wnl and fluids resumed. call light in reach.
--- NOTE | 2024-04-17 23:01 | NUR ---
PATIENT IS RESTING IN BED WATCHING TV. PATIENT REPORTS 7/10 ABD PAIN, PRN PAIN MEDICATION GIVEN PER ORDER. IV INFUSING PER ORDER. PATIENTS IV ABX INFUSING PER ORDER. PATIENT GIVEN PRN ANXIETY MEDICATION PER REQUEST. PATIENT DENIES ANY FURTHER NEEDS. CALL LIGHT IN REACH.
[2024-04-18] VITALS (9 sets, daily range): BP systolic 138–154; BP diastolic 77–94
--- NOTE | 2024-04-18 00:20 | NUR ---
PATIENT IS RESTING IN BED WITH EYES CLOSED, RR 15. CALL LIGHT IN REACH. IV INFUSING PER ORDER.
--- NOTE | 2024-04-18 02:04 | NUR ---
PATIENT IS RESTING IN BED WITH EYES CLOSED, RR 16. CALL LIGHT IN REACH. IV INFUSING PER ORDER.
--- NOTE | 2024-04-18 02:34 | NUR ---
PATIENTS IV BEEPING. PATIENTS IV ABX COMPLETED. PATIENTS PRIMARY IV INFUSING PER ORDER. PATIENT DENIES ANY PAIN OR NAUSEA. PATIENT DENIES ANY NEEDS. CALL LIGHT IN REACH.
--- NOTE | 2024-04-18 04:40 | NUR ---
PATIENT IS RESTING IN BED WITH EYES CLOSED, RR 16. CALL LIGHT IN REACH.
--- NOTE | 2024-04-18 05:32 | NUR ---
NUT PROCESS HELPER OBTAINED VITALS AND I&O. PT ASKED FOR PAIN MEDS. RN NOTIFED. PT STATES NO FURTHER NEEDS AT THIS TIME. CALL LIGHT WITHIN REACH.
--- NOTE | 2024-04-18 06:51 | NUR ---
PATIENTS AM ABX INFUSING PER ORDER. IV INFUSING PER ORDER. PATIENT RATES PAIN AT A 7/10 IN HER LLQ, PRN PAIN MEDICATION GIVEN PER ORDER. PATIENT PROVIDED FRESH ICE WATER. PATIENT DENIES ANY FURTHER NEEDS. CALL LIGHT IN REACH.
--- NOTE | 2024-04-18 07:06 | NUR ---
Pt report received from VASYL Peraza. Pt is awake, resting in bed, alert and oriented, call light in reach. White board updated at this time. Pt denies needs at this time.
--- NOTE | 2024-04-18 08:51 | NUR ---
PATIENT IN BED AT THIS TIME. CALL LIGHT WITHIN REACH, NO FURTHER NEEDS AT THIS TIME.
[2024-04-18] MEDS ORDERED: PANTOPRAZOLE SODIUM 40 MG TABEC PO SCH (09:00)
--- NOTE | 2024-04-18 10:38 | NUR ---
PT NOT AVAILABLE FOR VISIT. PROVIDED PRAYER.
--- NOTE | 2024-04-18 10:45 | NUR ---
Pt ambulating down to gift shop with Fauzia Dean.
--- NOTE | 2024-04-18 15:35 | NUR ---
PATIENT IN BED AT THIS TIME. CALL LIGHT WITHIN REACH, NO FURTHER NEEDS AT THIS TIME.
--- NOTE | 2024-04-18 18:30 | NUR ---
In with pt for pain med administration for pain 8 out of 10. Pt states she does not feel well and would like to have zofran as well. Pt has voided quantity sufficient this shift, had a liquid BM, and states she is passing gas a lot and much easier today compared to yesterday. Pt did take a walk down to the gift shop and back and states that helped. Encouraged pt to ambulate the hallways often. She was provided with apple juice at her request as she stated she was getting tired of the ensures and jello. Pt reports she thinks there is blood leaking out of her IV. Dressing changed, hub tightened, IV has flushed well with good return and no leaking noted at any point during the shift. No redness, or swelling noted. Call light in reach. Pt denied any further needs at this time.
--- NOTE | 2024-04-18 18:55 | NUR ---
PATIENT IN BED AT THIS TIME. PRESS BREAKER CHARTED VITALS AND I&O'S. CALL LIGHT WITHIN REACH, NO FURTHER NEEDS AT THIS TIME.
--- NOTE | 2024-04-18 19:02 | NUR ---
After pt advised that she does not feel good, earlier, she also mentioned that she hasn't been drinking a lot of her clears on her tray because she is wanting physical food. I checked her CBG at this time and found it to be 88). Pt was agreeable to drinking apple juice.
--- NOTE | 2024-04-18 19:30 | NUR ---
Received report from VASYL Gaines. Pt resting in bed. Denies needs. Call light within reach.
--- NOTE | 2024-04-18 20:15 | NUR ---
PT RESTING IN BED. REPORTS HAVING JUST USED THE BR. VSS. INCREASED ABD CRAMPING AFTE AMBULATION, ADMINISTERED PRN DILAUDID PER EMAR. LSC. HRR. BT HYPO. LLQ TENDER, ABD MILD DISTENDED. PASSING FLATUS. LBM TODAY. LAC IV INFUSING LR. IND IN ROOM. CALL LIGHT WITHIN REACH.
--- NOTE | 2024-04-18 20:18 | NUR ---
CALL LIGHT ANSWERED. PT WANTED WATER AND PAIN MEDS. RN NOTIFED ABOUT PAIN MEDS. CRYSTAL GROWING TECHNICIAN BROUGHT WATER AND OBTIANED AND DOCUMENTED VITALS AND I&O. CRYSTAL GROWING TECHNICIAN BROUGHT PT SODA AT PT REQUEST. PT STATES NO FURTHER NEEDS AT THIS TIME. CALL LIGHT WITHIN REACH.
--- NOTE | 2024-04-18 22:00 | NUR ---
PT REQUESTING PRN SLEEPING MED. PT DECIDED ON VISTARIL, ADMINISTERED PER EMAR. IV ATB STARTED. DENIES ANY FURTHER NEEDS. CALL LIGHT WITHIN REACH.
--- NOTE | 2024-04-18 23:39 | NUR ---
PT REPORTS HEADACHE, REQUESTING PRN TYLENOL. TYLENOL ADMINISTERED PER EMAR.
[2024-04-19] VITALS (9 sets, daily range): BP systolic 136–151; BP diastolic 74–93
--- NOTE | 2024-04-19 01:19 | NUR ---
PT APPEARS ASLEEP. BREATHING EVEN AND UNLABORED. CALL LIGHT WITHIN REACH.
--- NOTE | 2024-04-19 01:55 | NUR ---
PT UP TO BR IND. REQUESTS PRN TYLENOL-INFORMED PT IT WAS TOO EARLY FOR ANOTHER DOSE. PT BACK TO BED, NO OTHER NEEDS.
--- NOTE | 2024-04-19 04:17 | NUR ---
PT IND IN ROOM. REPORTS LLQ PAIN-PRN DILAUDID AND TYLENOL NEEDED. LLQ TENDER. PASSING FLATUS. IVF INFUSING. DR. ARROYO CONSULTED.
--- NOTE | 2024-04-19 05:48 | NUR ---
PT UP TO BR INDEPENDENTLY. IV ATB ADMINISTERED PER EMAR. FRESH ICE WATER PROVIDED. DENIES ANY OTHER NEEDS AT THIS TIME.
[2024-04-19 06:03] LABS: BASOPHILS 1.2 % (0-2); EOSINOPHILS 1.4 % (0-6); HEMATOCRIT 35.6 % (35.0-50.0); HEMOGLOBIN 12.6 g/dL (12.0-18.0); LYMPHOCYTES 14.8 % (24-44); MCH 31.7 (27-36); MCHC 35.4 g/dl (30-36); MCV 89.5 fl (81-99); MONOCYTES 8.9 % (0-12); NEUTROPHILS 73.7 % (39-80); PLATELET COUNT 207 K/uL (140-440); RBC 3.98 M/ul (4.3-5.7); RDW 12.7 (10.5-15.0)
[2024-04-19 06:14] LABS: ANION GAP 11.5 (7-21); BUN/CREATININE RATIO 4.41 (6.0-28.6); CALCIUM 8.7 mg/dL (8.5-10.1); CREATININE, SERUM 0.68 mg/dL (0.55-1.02); MAGNESIUM 1.6 mg/dL (1.8-2.4); PHOSPHORUS, INORGANIC 2.9 mg/dL (2.5-4.9); POTASSIUM 3.5 mmol/L (3.5-5.1)
--- NOTE | 2024-04-19 06:54 | NUR ---
Pt report received from VASYL Westbrook. Pt is resting supine in bed, awake, alert and oriented. Pt states she is very hungry. Denies further needs at this time. Pain is under control. Call light in reach.
--- NOTE | 2024-04-19 08:06 | NUR ---
UR CONCURRENT CLINICAL REVIEW: [facility] [place] CRITERIA FOR DIVERTICULITIS- MEETS GL DA 2 TODAY ODS [facility]O INPT 04/16/24 @ 2100 ORDER MATCHES REG CLINICALS FAXED TO [facility] FOR AUTH REVIEW AND UPDATE DISCHARGE TO HOME. MAY NEED MULTIPLE DAYS OF IV ABX. 04/22/24
--- NOTE | 2024-04-19 08:16 | NUR ---
PATIENT IN BED AT THIS TIME. DIDACTIC PROGRAM IN DIETETICS DIRECTOR WENT INTO PATIENTS ROOM FOR ROUDINGS. CALL LIGHT WITHIN REACH, NO FURTHER NEEDS AT THIS TIME.
[2024-04-19] MEDS ORDERED: MAGNESIUM SULFATE 2 GM/50 ML BAG IV ONE (09:00)
--- NOTE | 2024-04-19 10:15 | NUR ---
PATIENT IN BED AT THIS TIME. RED LEAD BURNER CHARTED I&O'S AND [facility] LANGUAGE PATHOLOGIST CHARTED VITALS. CALL LIGHT WITHIN REACH, NO FURTHER NEEDS AT THIS TIME.
--- NOTE | 2024-04-19 11:31 | NUR ---
Advised by [facility] meatcutter, Wendy, that the pt is c/o her IV leaking and burning. Currently Mg running. 3 peripheral attempts made with the 3rd successful in the RAC. Pressure bandages applied to the two unsuccessful sites. Mg reconnected to new IV site, flushes well with good return. Pt denies needs at this time. Call light in reach.
--- NOTE | 2024-04-19 12:03 | NUR ---
VISITED DURING SPIRITUAL CARE ROUNDS. PT IN OVERALL GOOD SPIRITS, EXPRESSED ANTICIPATION FOR DISCHARGE AND INFORMATION. BASIN TENDER PROVIDED SUPPORTIVE PRESENCE, HOSPITALITY, PRAYER, FACILITATED INTERACTION WITH THERAPY ANIMAL. PT EXPRESSED GRATITUDE, HOPE.
--- NOTE | 2024-04-19 14:41 | NUR ---
PATIENT IN BED AT THIS TIME. BRIDGE EXPERT CHARTED VITALS AND I&O'S. CALL LIGHT WITHIN REACH, NO FURTHER NEEDS AT THIS TIME.
--- NOTE | 2024-04-19 18:59 | NUR ---
Pt up to shower. IV S/L
--- NOTE | 2024-04-19 19:25 | NUR ---
BEDSIDE SHIFT REPORT, PATIENT IS IN SHOWER, SHE OPENED BATHROOM DOOR TO SAY DICK, THIS RN INTRODUCED SELF. PATIENT VERBALIZED NO NEEDS AT THIS TIME.
--- NOTE | 2024-04-19 21:00 | NUR ---
CEMENT PRODUCTION PLANT OPERATOR OBTAINED VITALS AND I&O. PT ICE WATER REFILLED. PT STATING FEELING " A LITTLE BIT NAUSEOUS" PRIMARY RN NOTIFED. PT STATES NO FURTHER NEEDS AT THIS TIME. CALL LIGHT WITHIN REACH.
--- NOTE | 2024-04-19 21:32 | NUR ---
PATIENT REPORTS PAIN IN ABD AFTER UP SHOWERING AND AMBULATINGIN ROOM MORE TONIGHT. SHE REPORTS PAIN 7/10, DILAUDID PRN ADMINISTERED. SHE HAS NO FURTHER NEEDS AT THIS TIME.
--- NOTE | 2024-04-19 22:51 | NUR ---
PATIENT REPORTS SHE IS FEELING LIKE SHE IS NOT GOING TO BE ABLE TO SLEEP, ASKED FOR VISTRIL. ADMINISTERED AT THIS TIME. SHE REPORTS PAIN HAS RESOLVED, SHE REPORTS NO NAUSEA.
--- NOTE | 2024-04-20 03:14 | NUR ---
PATIENT RESTING IN BED, EYES CLOSED. MILD SNORING NOTED, RR 18/MIN. NO DISTRESS NOTED.
[2024-04-20 05:22] LABS: BASOPHILS 0.6 % (0-2); EOSINOPHILS 1.9 % (0-6); HEMATOCRIT 34.3 % (35.0-50.0); HEMOGLOBIN 12.4 g/dL (12.0-18.0); LYMPHOCYTES 17.8 % (24-44); MCH 31.9 (27-36); MCHC 36.1 g/dl (30-36); MCV 88.3 fl (81-99); MONOCYTES 8.6 % (0-12); NEUTROPHILS 71.1 % (39-80); PLATELET COUNT 239 K/uL (140-440); RBC 3.88 M/ul (4.3-5.7); RDW 12.6 (10.5-15.0)
[2024-04-20 05:23] VITALS: BP 124/71
--- NOTE | 2024-04-20 05:26 | NUR ---
BOTTOM SANDER OBTAINED VITALS AND I&O. PT ICE WATER REFILLED. PT STATES NO FURTHER NEEDS AT THIS TIME. CALL LIGHT WITHIN REACH.
[2024-04-20 05:42] LABS: ALBUMIN 2.7 g/dL (3.4-5.0); ALBUMIN/GLOBULIN RATIO 0.73 (1.1-2.4); ANION GAP 10.4 (7-21); BILIRUBIN, TOTAL 0.7 ng/dL (0.2-1.0); BUN/CREATININE RATIO 3.17 (6.0-28.6); CALCIUM 8.5 mg/dL (8.5-10.1); CREATININE, SERUM 0.63 mg/dL (0.55-1.02); POTASSIUM 3.4 mmol/L (3.5-5.1); PROTEIN, TOTAL 6.4 g/dL (6.4-8.2)
[2024-04-20 06:32] VITALS: BP 124/71
--- NOTE | 2024-04-20 06:33 | NUR ---
PATIENT HAS SLEPT WELL OVER SHIFT, SHE WAS SHOWERING AT SHIFT CHANGE INDEPENDENTLY, WITH HS MEDICATIONS PATIENT REPORTS SHE IS HAVING 7/10 ABD PAIN, SHE REPORTS SHE THINKS ITS WORSE DUE TO INCREASED ACTIVITYTHIS EVENING. DILAUDID PRN ADMINISTERED. SHE THEN REQUESTED VISTRIL 2200 TO ASSIST WITH RELAXING TO SLEEP. NO OTHER NEEDS OVER NIGHT, THIS AM PATIENT REPORTS SHE HJAS NO NEEDS, PAIN IS TOLERABLE AND NO NAUSEA TO REPORT. SHE IS TOLERATING FULL LIQUID, DRINKING WATER AND VOIDING Q.S., PATIENT IS EXPECTING TO DISCHARGE TODAY.
--- NOTE | 2024-04-20 07:30 | NUR ---
RECEIVED REPORT FROM VASYL HUSSEIN. PT AWAKE IN ROOM, DR. ARROYO AT THE BEDSIDE. CALL LIGHT WITHIN REACH.
--- NOTE | 2024-04-20 08:35 | NUR ---
PT REQUESTS CREAM OF WHEAT, KITCHEN CALLED. PT STATES NO FURTHER NEEDS AT THIS TIME, CALL LIGHT WITHIN REACH.
--- NOTE | 2024-04-20 09:20 | NUR ---
PT AWAKE IN BED. IV FLUIDS DC'D PER ORDER. PT STATES SHE WAS ABLE TO EAT SOME OF SOFT DIET TRAY W/O DIFFICULTY. PT DENIES PAIN, NAUSEA OR SOB AT THIS TIME. CALL LIGHT WITHIN REACH.
[2024-04-20] MEDS ORDERED: POLYETHYLENE GLYCOL 3350 1 PACKET PO PRN (09:45)
--- NOTE | 2024-04-20 10:25 | NUR ---
PT AWAKE IN BED VISITING WITH FRIEND AT THE BEDSIDE. PT STATES SHE HAD A REGULAR BM AND NOTICED A "BIG IMPROVEMENT" FROM PREVIOUS BMs RECENTLY. PT DENIES PAIN OR NAUSEA AT THIS TIME. PT DENIES ANY CURRENT NEEDS. CALL LIGHT WITHIN REACH.
[2024-04-20 10:55] VITALS: BP 132/91
--- NOTE | 2024-04-20 11:15 | NUR ---
PT SITTING UP IN BED AWAKE, STATES NO NEEDS AT THIS TIME, VISITING WITH FRIEND AT THE BEDSIDE.
[2024-04-20] MEDS ORDERED: CIPROFLOXACIN500 MG PO (11:19)
[2024-04-20] MEDS ORDERED: METRONIDAZOLE500 MG PO (11:20)
[2024-04-20 11:32] VITALS: BP 132/91
--- NOTE | 2024-04-20 11:38 | NUR ---
IV DC'D WNL. DC PACKET AND EDUCATION GIVEN, PT VERBALIZES UNDERSTANDING, STATES ALL QUESTIONS HAVE BEEN ANSWERED. PT DRESSED INDEPENDENTLY IN OWN CLOTHES. PT LEAVING WITH ALL PERSONAL BELONGINGS. PT STATES NO FURTHER NEEDS AT THIS TIME, CALL LIGHT WITHIN REACH.
[2024-04-20 12:10] VITALS: BP 153/90
[2024-04-20 12:11] VITALS: BP 153/90
== END 2024-04-20 12:10 | disposition home or self-care (01) | DRG 392 ==
LOC: ED 17:38 → MS 21:00
PROVIDERS: Colon & Rectal Surgery; Emergency Medicine; ADMIT Student in an Organized Health Care Education/Training Program; ATTEND Family Medicine
DX: K57.20 Diverticulitis of large intestine with perforation and abscess without bleeding (principal); E66.9 Obesity, unspecified; I10 Essential (primary) hypertension; F43.10 Post-traumatic stress disorder, unspecified; E03.9 Hypothyroidism, unspecified; F17.210 Nicotine dependence, cigarettes, uncomplicated; E83.42 Hypomagnesemia; E87.6 Hypokalemia; R16.1 Splenomegaly, not elsewhere classified; F41.0 Panic disorder [episodic paroxysmal anxiety]; F41.1 Generalized anxiety disorder; F39 Unspecified mood [affective] disorder; F32.9 Major depressive disorder, single episode, unspecified; G43.909 Migraine, unspecified, not intractable, without status migrainosus; Z87.19 Personal history of other diseases of the digestive system; Z90.49 Acquired absence of other specified parts of digestive tract; Z90.710 Acquired absence of both cervix and uterus; Z88.1 Allergy status to other antibiotic agents; Z88.8 Allergy status to other drugs, medicaments and biological substances; Z88.2 Allergy status to sulfonamides; Z68.32 Body mass index [BMI] 32.0-32.9, adult
CPT/HCPCS: 36415; 74176; 80048; 80053; 81003; 83735; 84100; 84703; 85025; 96374; 96375; 99285-25; A9270; J0780; J1171; J1650; J1885; J2270; J2405; J2470; J2543; J3475; J3480; J7121; Q0177

== ENCOUNTER 2024-04-23 10:48 | Inpatient (IN) | payer OTHER ==
[~2024-04-23] VITALS: Ht 170.2 cm; Wt 91.5 kg
[~2024-04-23 10:48] MED LIST changes: +CIPROFLOXACIN500 MG PO; +DESVENLAFAXINE50 M3 PO; +HYDROXYZINE HCL25 MG PO; +METRONIDAZOLE500 MG PO
--- OUTSIDE RECORDS SUMMARY | 2024-04-23 10:55 | XMS ---
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 PHONE: [phone] Danyel has no Care Guidelines for this patient. E.D. VISIT COUNT (12 MO.) 3 PAULINE Orozco TOTAL 3 NOTE: Visits indicate total known visits. ED/UCC VISIT TRACKING (12 MO.) 04/23/2024 10:49 PAULINE Preciado OR TYPE: Emergency COMPLAINT: - FLANK PAIN 04/16/2024 17:39 PAULINE [facility] TYPE: Emergency COMPLAINT: - FLANK PAIN 02/20/2024 11:56 PAULINE [facility] TYPE: Emergency COMPLAINT: - RT SIDE INJURY INPATIENT VISIT TRACKING (12 MO.) 04/16/2024 21:00 PAULINE Preciado OR TYPE: Medical Surgical COMPLAINT: - COMPLICATED DIVERTICULITIS [email or web address]
[2024-04-23] MEDS ORDERED: ondansetron HCL 4 MG/2 ML VIAL IV PRN (12:45)
[2024-04-23] MEDS ORDERED: KETOROLAC TROMETHAMINE 15 MG/ML VIAL IV ONE (12:45)
[2024-04-23 12:59] LABS: BILIRUBIN, URINE NEGATIVE (negative); BLOOD/HGB, URINE TRACE-I (Negative); KETONE, URINE NEGATIVE (Negative); LEUK ESTERASE, URINE NEGATIVE (negative); NITRITE, URINE NEGATIVE (negative); PH, URINE 6.5 (5-7)
[2024-04-23 13:05] LABS: BACTERIA, URINE RARE /hpf (negative); CASTS, URINE NONE SEEN \\lpf; COLLECTION TYPE, URINE CLEAN CATCH; EPITHELIAL CELLS, URINE SQUAMOUS 2+ /lpf (0-1+); REFLEX CULTURE, URINE No (No); WHITE BLOOD CELLS, URINE 0-1 /HPF (0-5)
[2024-04-23 13:06] LABS: BASOPHILS 0.7 % (0-2); EOSINOPHILS 0.4 % (0-6); HEMATOCRIT 44.3 % (35.0-50.0); HEMOGLOBIN 15.6 g/dL (12.0-18.0); LYMPHOCYTES 18.9 % (24-44); MCH 31.4 (27-36); MCHC 35.2 g/dl (30-36); MCV 89.2 fl (81-99); MONOCYTES 8.3 % (0-12); NEUTROPHILS 71.7 % (39-80); PLATELET COUNT 387 K/uL (140-440); RBC 4.96 M/ul (4.3-5.7); RDW 12.8 (10.5-15.0)
[2024-04-23 13:06] LABS: CRYSTALS, URINE NONE SEEN (0-1+)
[2024-04-23] MEDS ORDERED: ondansetron HCL 4 MG/2 ML VIAL IV ONE (13:15)
[2024-04-23] MEDS ORDERED: HYDROmorphone HCL 1 MG/ML SYR IV ONE ×2 (13:15→14:45)
[2024-04-23] MEDS ORDERED: SODIUM CHLORIDE 0.9% 1,000 ML IV PRN (13:15)
[2024-04-23 13:22] LABS: ALBUMIN 3.8 g/dL (3.4-5.0); ALBUMIN/GLOBULIN RATIO 0.76 (1.1-2.4); ANION GAP 13.6 (7-21); BILIRUBIN, TOTAL 0.5 ng/dL (0.2-1.0); BUN/CREATININE RATIO 9.41 (6.0-28.6); CALCIUM 10.1 mg/dL (8.5-10.1); CREATININE, SERUM 0.85 mg/dL (0.55-1.02); POTASSIUM 3.6 mmol/L (3.5-5.1); PROTEIN, TOTAL 8.8 g/dL (6.4-8.2)
[2024-04-23] MEDS ORDERED: PIPERACILLIN/TAZOBACTAM 3.375 GM in DEXTROSE 5% 100 ML IV ONE (14:30)
[2024-04-23] MEDS ORDERED: hydrOXYzine pamoate 25 MG CAP PO PRN (15:15)
[2024-04-23] MEDS ORDERED: SODIUM CHLORIDE 0.9% 1,000 ML IV SCH (15:15)
[2024-04-23] MEDS ORDERED: OXYCODONE HCL 5 MG TAB PO PRN (15:30)
[2024-04-23] MEDS ORDERED: ACETAMINOPHEN 325 MG TAB PO PRN (15:30)
[2024-04-23] MEDS ORDERED: MORPHINE SULFATE 4 MG/ML VIAL IV PRN (15:30)
[2024-04-23 15:55] VITALS: BP 162/80
--- NOTE | 2024-04-23 16:34 | NUR ---
PATIENT ADMITTED TO MED SURG. NS INFUSING @125ML/HR. PATIENT GIVEN 4MG OF IV MORPHINE FOR 6/10 LEFT FLANK PAIN. NO OTHER NEEDS AT THIS TIME.
[2024-04-23] MEDS ORDERED: LACTATED RINGER'S 1,000 ML IV SCH (17:45)
--- NOTE | 2024-04-23 17:55 | NUR ---
PATIENT REPORTS PAIN 3/10 POST MORPHINE. CLEAR LIQUIDS ORDERED FOR DINNER. IVF NOW LR @ 100
[2024-04-23 17:59] VITALS: BP 182/94
--- NOTE | 2024-04-23 18:29 | NUR ---
PATIENT IN BED AT THIS TIME. BUSINESS DEAN CHARTED VITALS AND I&O'S. CALL LIGHT WITHIN REACH, NO FURTHER NEEDS AT THIS TIME.
--- NOTE | 2024-04-23 19:10 | NUR ---
RECIEVED REPORT FROM VASYL CHRISTIANSEN. PATIENT AWAKE IN BED. FAMILY AT THE BEDSIDE. PATIENT WORKING ON DINNER TRAY. URINAL EMPTIED. PATIENT STATED PAIN WAS UNDER CONTROL. PATIENT DENIES ADDITIONAL NEEDS AT THIS TIME. CALL LIGHT IN PLACE.
[2024-04-23 21:06] VITALS: BP 140/80
[2024-04-23 21:07] VITALS: BP 140/80
--- NOTE | 2024-04-23 21:09 | NUR ---
IN ROOM RESPONDING TO [employer] CALL LIGHT. PATIENT REQUESTED PAIN MEDICATION. MEDICATION ADMINISTERED, SEE E-MAR. ASSESSMENT COMPLETED. PATIENT AWAKE IN BED. PATIENT REQUESTED RED JELLO, RED JELLO PROVIDED. DISCUSSED SIDE EFFECTS OF PAIN MEDICATION AND ADVISED PATIENT TO USE CALL LIGHT TO AMBULATE IF FEELING DIZZY/LIGHT HEADED/UNSTABLE. PATIENT VERBALIZED UNDERSTANDING. PATIENT DENIES ADDITIONAL NEEDS AT THIS TIME. CALL LIGHT IN REACH.
[2024-04-23] MEDS ORDERED: PIPERACILLIN/TAZOBACTAM 3.375 GM in DEXTROSE 5% 100 ML IV SCH (22:00)
--- NOTE | 2024-04-23 22:49 | NUR ---
IN ROOM TO REASSESS PATIENT'S PAIN LEVEL. PATIENT STATED PAIN IS 5/10. PATIENT RESTING IN BED. POSITIONED WITH PILLOWS TO IMPROVE COMFORT AND REST. PATIENT DENIES ADDITIONAL NEEDS AT THIS TIME. CALL LIGHT IN REACH.
[2024-04-24] VITALS (10 sets, daily range): BP systolic 125–140; BP diastolic 65–81
--- NOTE | 2024-04-24 00:21 | NUR ---
IN ROOM TO ROUND ON PATIENT. PATIENT AWAKE IN BED. PATIENT REPORTS 6/10 PAIN. ADVISED PATIENT NEXT DOSE OF PAIN MEDICATION IS AVAILABLE IN AN HOUR. PATIENT AGREEABLE TO WAITING FOR DOSE OF PAIN MEDICATION. EMPTIED HAT. REFILLED WATER. PATIENT DENIES ADDITIONAL NEEDS AT THIS TIME. CALL LIGHT IN REACH.
[2024-04-24] MEDS ORDERED: PIPERACILLIN/TAZOBACTAM 3.375 GM in DEXTROSE 5% 100 ML IV SCH (01:00)
--- NOTE | 2024-04-24 01:10 | NUR ---
IN ROOM TO ADMINISTER MEDICATIONS, SEE E-MAR. PATIENT C/O NAUSEA. PRN MEDICATION GIVEN. PATIENT C/O PAIN 12/26, PRN MEDICATION GIVEN. PATIENT EXPRESSES DIFFICULTY INITIATING SLEEP. PATIENT REQUESTS HOT TEA, HOT TEA PROVIDED. PATIENT DENIES ADDITIONAL NEEDS AT THIS TIME. CALL LIGHT IN REACH.
--- NOTE | 2024-04-24 03:55 | NUR ---
IN ROOM RESPONDING TO CALL LIGHT REGARDING PUMP BEEPING. REPLACED CONTINUOUS FLUIDS, SEE E-MAR. EMPTIED HAT. PATIENT RESTING IN BED. PATIENT DENIES ADDITIONAL NEEDS AT THIS TIME, CALL LIGHT IN REACH.
[2024-04-24 05:30] LABS: BASOPHILS 0.5 % (0-2); EOSINOPHILS 2.1 % (0-6); HEMATOCRIT 34.9 % (35.0-50.0); HEMOGLOBIN 12.4 g/dL (12.0-18.0); LYMPHOCYTES 20.9 % (24-44); MCH 31.7 (27-36); MCHC 35.4 g/dl (30-36); MCV 89.3 fl (81-99); MONOCYTES 8.7 % (0-12); NEUTROPHILS 67.8 % (39-80); PLATELET COUNT 301 K/uL (140-440); RBC 3.91 M/ul (4.3-5.7); RDW 12.6 (10.5-15.0)
[2024-04-24 05:41] LABS: ANION GAP 12.6 (7-21); BUN/CREATININE RATIO 9.85 (6.0-28.6); CALCIUM 8.8 mg/dL (8.5-10.1); CREATININE, SERUM 0.71 mg/dL (0.55-1.02); MAGNESIUM 1.7 mg/dL (1.8-2.4); POTASSIUM 3.6 mmol/L (3.5-5.1)
--- NOTE | 2024-04-24 05:53 | NUR ---
IN ROOM TO ROUND ON PATIENT. PATIENT AWAKE IN BED. LAB PRESENT IN THE ROOM. PATIENT REQUESTING PAIN MEDICATION DUE TO HEADACHE AND LEFT SIDE PAIN. PRN MEDICATION ADMINISTERED, SEE E-MAR. WATER REFILLED. HAT EMPTIED. PATIENT DENIES ADDITIONAL NEEDS AT THIS TIME. CALL LIGHT IN REACH.
--- NOTE | 2024-04-24 07:10 | NUR ---
REPORT RECEIVED FROM VASYL RAYMOND AND VASYL ELIZALDE. PT OPENS EYES WHEN ENTERING ROOM. PT WITH NO REQUESTS AT THIS TIME, CALL LIGHT AND PERSONAL BELONGINGS IN REACH.
--- NOTE | 2024-04-24 07:35 | NUR ---
MEDICATION ADMINISTERED PER MAR AND INITIAL ASSESSMENT COMPLETE. PT RESTING IN BED, CONVERSES PLEASANTLY. PT IS REPORTING PAIN IN HER LEFT ABDOMEN WELL A HEADACHE, REQUESTING PRN PAIN MEDICATION. DR ALBRECHT NOTIFIED, STATES HE WILL PUT IN ORDERS FOR PRN PAIN MEDICATIONS. PT LUNG SOUNDS CLEAR THROUGHOUT, HEART TONES HEARD WNL. BOWEL TONES HEARD IN ALL FOUR QUADRANTS, PT TENDER TO PALPATION ON THE L SIDE ABDOMEN ONLY. CURRENTLY REPORTING NO NAUSEA/VOMITING. PULSES FELT 2+ IN ALL FOUR EXTREMETIES, NO EDEMA, NO NUMBNESS/TINGLING REPORTED, SENSATION INTACT. SCDs IN PLACE. R HAND IV FLUSHED WNL, DRESSING INTACT, NO PAIN REPORTED. LR INFUSING AT 100ML/HR, IV ABX ALSO STARTED AT THIS TIME AT 25ML/HR. PT HAS NO FURTHER NEEDS AT THIS TIME, CALL LIGHT AND PERSONAL BELONGINGS IN REACH.
[2024-04-24] MEDS ORDERED: ACETAMINOPHEN 325 MG TAB PO PRN (07:45)
[2024-04-24] MEDS ORDERED: OXYCODONE HCL 5 MG TAB PO PRN (07:45)
--- NOTE | 2024-04-24 07:51 | NUR ---
THIS RN REVEIWED VASYL MELENDEZ SHIFT SCREENING AT THIS TIME.
--- NOTE | 2024-04-24 08:16 | NUR ---
PATIENT IN BED AT THIS TIME. CALL LIGHT WITHIN REACH, NO FURTHER NEEDS AT THIS TIME.
--- NOTE | 2024-04-24 08:34 | NUR ---
ROUNDING ON PT. PT SITTING UP WITH HOB ELEVATED, BREAKFAST TRAY BESIDE HER. PT REQUESTING ICE AND STRAW, RETRIEVED. NO OTHER NEEDS AT THIS TIME, CALL LIGHT AND PERSONAL BELONGINGS IN REACH.
--- NOTE | 2024-04-24 09:25 | NUR ---
PATIENT IS LYING IN BED AND STATES THE HEADACHES IS MORE MANAGEABLE AFTER RECEIVING TYLENOL THIS MORNING. PATIENT STATED NO NEEDS AT THIS TIME, CALL LIGHT AND PERSONAL BELONGINGS ARE WITHIN REACH.
--- NOTE | 2024-04-24 09:55 | NUR ---
Spoke with Velia. She lives with a friend in a 1 story home. No issues getting in or out of the home. She does not use any DME and denies any financial issues. Pt states she lives with someone who can assist her if needed. She plans on dc to home when she is cleared medically. Pt was placed on list to [facility]. This has not happened, I called [facility] and they added this pt and will see at 11:00.
--- NOTE | 2024-04-24 10:09 | NUR ---
PT PAIN LEVEL REASSESSED. PT REPORTING HER HEADACHE IS COMPLETELY GONE BUT HER L FLANK/LOWER BACK PAIN HAS WORSENED. CHERISE FROM CASE MANAGEMENT ALSO PRESENT TALKING TO PT. HOT PACK AND PRN PAIN MEDICATION SUPPLIED. PT AMBULATES HERSELF TO THE BATHROOM AND THEN BACK TO BED, HOOKS HERSELF UP TO SCDs. PT EDUCATED ON PRN PAIN MEDICATION SIDE EFFECTS AND ENCOURAGED TO CALL IF SHE EXPERIENCES ANY. NO FURTHER NEEDS AT THIS TIME, CALL LIGHT AND PERSONAL BELONGINGS IN REACH.
--- NOTE | 2024-04-24 10:17 | CONS ---
[facility] [address], [place] [address] Signed DATE OF CONSULTATION: 04/23/2024 REQUESTING PHYSICIAN: Dr. Blackmon. ISSUE: Persistent diverticulitis. HISTORY OF PRESENT ILLNESS: This 43-year-old white woman is known to me from the past. She was recently hospitalized at [facility] on the hospitalist service between April 17 and April 20, 2024. She was noted to have left lower abdominal pain. A CT scan finding showed findings consistent with acute sigmoid diverticulitis. The discharging physician was sathya Farrar. Attending admitting physician was Dr. Theodore. She had presented to the emergency room with left lower abdominal pain, initially evaluated by Dr. Ruiz. Her primary care provider is VIOLETA Flowers. She was admitted to the hospital at that time. Given IV antibiotics, bowel rest, and so forth and discharged to home on April 20, improved and with discharge medication of ciprofloxacin and Flagyl. Within 12 hours of returning home, she began having persisting left lower abdominal pain and returned to the emergency room today where she was evaluated by Dr. Zander Ramirez. Evaluation showed findings consistent with acute sigmoid diverticulitis. Her clinical exam showed her to be afebrile with a temperature of 98.2 with a blood pressure 159/121, initially subsequently 116/82. A CT scan was repeated, which showed acute diverticulitis of sigmoid with left oophoritis and possible left ovarian abscess measuring 2.5 cm. Small locules of gas were noted adjacent to the left ovary and lateral pelvic sidewall. 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 She is also noted to have mild splenomegaly and nonobstructive left renal stones. LABORATORY STUDIES: Showed an elevated white count of 11.5 and urinalysis, which was essentially normal. Electrolytes were normal. Creatinine was 0.85. She was admitted once again to the hospitalist service with antibiotic therapy intravenously administered including Zosyn (piperacillin) and pain medication to include morphine sulfate. PAST MEDICAL HISTORY: Notable for a laparoscopic cholecystectomy, which I performed, hysterectomy as previously described, but no other abdominal surgery. Electronically Signed By: SUSANNE AREVALO MD 04/24/24 1017 PATIENT NAME: SUNSHINE JORGE CONSULTATION DATE OF : 80 REPORT #: [id number] PHYSICIAN: SUSANNE AREVALO MD PCP: NO PRIMARY CARE PHYSICIAN REPORT IS CONFIDENTIAL AND NOT TO BE RELEASED WITHOUT AUTHORIZATION [facility] [address], [place] [address] Signed ALLERGIES: She has allergies to sulfa medications as well as sertraline. REVIEW OF SYSTEMS: She denies any fever, chills. She has had no shortness of breath or chest pain. Her pain is mostly in the left lower abdomen. She feels some tightness in her back. She says particularly in the lower aspect. PHYSICAL EXAMINATION: GENERAL: A pleasant white woman who does not look to be systemically toxic or even very uncomfortable at this time. VITAL SIGNS: Temperature is 98.5, pulse 71, blood pressure 162/80, O2 saturation 100% on room air. Trachea is midline. CHEST: Clear. HEART: Regular without murmur. ABDOMEN: Nondistended. There is no tenderness on the right side. There is mild tenderness in the left lower abdomen on deep palpation. She does not have peritonitis proper. EXTREMITIES: Show no clubbing, cyanosis, or edema. LABORATORY DATA: White cells are 11.5, hematocrit 44.3, platelets 387,000. Chem profile essentially normal. Creatinine 0.85. Liver enzymes showed alkaline phosphatase 123, globulin 5.0, lipase 46. Urinalysis was essentially negative, 2-3 red cells are seen, 0-1 white cells and squames 2+. A beta HCG is negative as it should be since she has had hysterectomy. I reviewed the CT scan from today confirming the findings as noted. ASSESSMENT AND PLAN: The patient has likely acute sigmoid diverticulitis. The area described as an abscess of the ovary is noted and the area in question is well visualized. She does not have a large extraluminal pericolonic abscess. Certainly, the area described as ovarian abscess is noted and may be possible, however, UNlikely that is. She has had a hysterectomy, uncertain if actual salpingectomy. I do not see any record of her hysterectomy in the medical record locally, though it might be available elsewhere. I agree with the current plan of treatment to include piperacillin intravenously administered. An abscess larger than 5 cm would certainly warrant drainage generally by laparoscopic approach. It would be quite uncommon for an ovary to truly have an abscess itself, though it is a possibility of course. There may be some extra colonic peridiverticular air, which would imply microperforation of acute diverticulitis; this essentially is the definition of acute diverticulitis generally speaking of course. Options of management at this time include intravenous antibiotics with transition to Electronically Signed By: SUSANNE AREVALO MD 04/24/24 1017 PATIENT NAME: SUNSHINE JORGE CONSULTATION DATE OF : 80 REPORT #: [id number] PHYSICIAN: SUSANNE AREVALO MD PCP: NO PRIMARY CARE PHYSICIAN REPORT IS CONFIDENTIAL AND NOT TO BE RELEASED WITHOUT AUTHORIZATION [facility] [address] [place], [place] [address] Signed oral antibiotics once again versus laparoscopy, laparoscopic evaluation, irrigation and placement of drain if needed. I would ultimately recommend that she undergo colonoscopy to assure there is no evidence of malignancy. It is notable she has no family history of colon cancer proper. I see no record of colonoscopy, though she says I have performed that for her in the past. I do note her operative report from 2018 confirming laparoscopic cholecystectomy with cholangiogram at that time, but no record of colonoscopy proper. I fully agree with use of IV antibiotics at this time. I think she can be allowed a clear liquid diet. At discharge, once this acute issue settles, a low-fiber diet would be appropriate for a minimum of next two weeks. Ultimately, consideration for colonoscopy in a month, more or less. I will continue to follow the patient. If things should worsen, consideration will be made for laparoscopy, laparoscopic irrigation and placement of drain as needed. Will discuss with Dr Blackmon. MD HANNAH Mckeon/KENDRA /[id number] cc: MD Ileana ROSE FNP Dr. Ciro Morello Andrew L Bower, MD Dr. Hilborn Dr. Servin Copies: LUL ARROYO MD ~ Electronically Signed By: SUSANNE AREVALO MD 04/24/24 1017 PATIENT NAME: SUNSHINE JORGE CONSULTATION DATE OF : 80 REPORT #: [id number] PHYSICIAN: SUSANNE AREVALO MD PCP: NO PRIMARY CARE PHYSICIAN REPORT IS CONFIDENTIAL AND NOT TO BE RELEASED WITHOUT AUTHORIZATION
--- NOTE | 2024-04-24 10:45 | NUR ---
PATIENT IN BED AT THIS TIME. PUBLIC HEALTH MICROBIOLOGIST CHARTED VITALS AND I&O'S. CALL LIGHT WITHIN REACH, NO FURTHER NEEDS AT THIS TIME.
--- NOTE | 2024-04-24 11:22 | NUR ---
UR CLINICAL REVIEW: [facility] INPT CRITERIA FO ABD PAIN ODS [facility]O INPT 04/23/24 @ 1504 ORDER MATCHES REG CLINICAL FAXED TO [facility] FOR AUTH REVIEW DISCHARGE TO HOME WHEN STABLE 04/26/24
--- NOTE | 2024-04-24 11:23 | NUR ---
PT RESTING IN BED, EYES OPEN UPON ENTERING ROOM. PT STATES "I'M DOZING OFF AND ON". REPORTS HER PAIN HAS IMPROVED WITH PRN PAIN MEDICATION AND HOT PACK. NO NEEDS AT THIS TIME, CALL LIGHT AND PERSONAL BELONGINGS IN REACH.
[2024-04-24] MEDS ORDERED: PHARMACY RENAL DOSE ADJUSTMENT 1 DOSE MISC PO SCH (12:00)
--- NOTE | 2024-04-24 12:12 | NUR ---
ROUNDING ON PT, PT SITTING UP IN BED EATING, LUNCH TRAY IS IN FRONT OF HER. PTs DIET WAS CHANGED TO LOW FIBER PER MD, PT STATES "I'M GOOD! I'M STARVING!" NO NEEDS AT THIS TIME, CALL LIGHT AND PERSONAL BELONGINGS IN REACH.
--- NOTE | 2024-04-24 13:15 | NUR ---
PT IV IN R HAND SALINE LOCKED AND COVERED TO ALLOW FOR PT TO SHOWER. PT EDUCATED TO CALL WHEN SHE IS FINISHED SHOWERING, PT VERBALIZES UNDERSTANDING. PT GIVEN FRESH ICE WATER AND APPLE JUICE. TOWELS AND NEW GOWN SUPPLIED IN BATHROOM FOR PT USE. PT STATED NO FURTHER NEEDS.
--- NOTE | 2024-04-24 13:34 | NUR ---
medications reconciled
--- NOTE | 2024-04-24 14:30 | NUR ---
SECOND ASSESSMENT COMPLETE. PT RESTING IN BED WITH HOB ELEVATED. IV TO BACK OF R HAND NERI WITH NS FLUSH, NO REDNESS OR ERYTHEMA NOTED. EDUCATED PT TO WATCH FOR REDNESS OR WARMTH AND CALL IF THIS DEVELOPS. PATIENT EXPRESSES UNDERSTANDING. PT BOWEL TONES ACTIVE IN ALL FOUR QUADRANTS, TENDER TO PALPATION IN LLQ ONLY. PT REPORTS PAIN IS CURRENTLY A 3/10 AND DENIES ANY INTERVENTIONS AT THIS TIME. NO NAUSEA, PT REPORTS FLATULENCE AFTER EATING LUNCH. IV SALINE LOCKED AT THIS TIME. SCDs IN PLACE. NO OTHER NEEDS AT THIS TIME, CALL LIGHT AND PERSONAL BELONGINGS IN REACH.
--- NOTE | 2024-04-24 15:29 | NUR ---
ROUNDING ON PT. PT HAS VISITOR AT BEDSIDE. NO NEEDS AT THIS TIME. CALL LIGHT AND PERSONAL BELONGINGS IN REACH.
--- NOTE | 2024-04-24 15:29 | NUR ---
PATIENT IN BED AT THIS TIME. RN CHARTED VITALS AND I&O'S. CALL LIGHT WITHIN REACH, NO FURTHER NEEDS AT THIS TIME.
--- NOTE | 2024-04-24 16:31 | NUR ---
PT IV RE-ASSESSED PRIOR TO ABX ADMINISTRATION PER ORDERS. PT NO LONGER REPORTING A BURNING SENSATION WITH FLUSHING WITH NS. IV SITE STILL WITHOUT ERYTHEMA OR WARMTH. IV ABX STARTED PER ORDERS. PT ALSO REPORTING A HEADACHE 5/10, PRN PAIN MEDICATION ADMINISTERED. PT HAS NO OTHER NEEDS AT THIS TIME, CALL LIGHT AND PERSONAL BELONGINGS IN REACH.
--- NOTE | 2024-04-24 17:33 | NUR ---
PATIENT IS LYING IN BED AND LOOKING ON THEIR PHONE. PATIENT DINNER TRAY SET ON THE PATIENTS BEDSIDE TABLE. PATIENT STATED NO FURTHER NEEDS AT THIS TIME. CALL LIGHT AND PERSONAL BELONGINGS ARE WITHIN REACH.
--- NOTE | 2024-04-24 18:20 | NUR ---
PATIENT IN BED RESTING AT THIS TIME. VITALS AND I&O'S DONE AND CHARTED. PATIENT STATES HER STOMACH IS BURNING EVER SINCE EATING THE TERIYAKI CHICKEN FROM DINNER, RN NOTIFIED. CALL LIGHT IN REACH. NO FURTHER NEEDS AT THIS TIME.
[2024-04-24] MEDS ORDERED: PANTOPRAZOLE SODIUM 40 MG TABEC PO SCH (18:30)
--- NOTE | 2024-04-24 18:30 | NUR ---
PT REPORTING A BURNING SENSATION FROM STOMACH TO BACK OF THROAT. PT IS IN BED AND TEARFUL AT THIS TIME. PT EDUCATED ON SITTING UPRIGHT TO ASSIST DIGESTION, GIVEN MILK, AND A WARM BLANKET DIRECTLY OVER HER STOMACH AND STERNUM. PT VERABLIZES UNDERSTANDING. DR ALBRECHT NOTIFIED OF PTs CONDITION, STATES HE WILL PLACE ORDERS. NO OTHER NEEDS AT THIS TIME, CALL LIGHT AND PERSONAL BELONGINGS IN REACH.
[2024-04-24] MEDS ORDERED: FAMOTIDINE 20 MG/ 2 ML VIAL IV ONE (18:45)
--- NOTE | 2024-04-24 19:05 | NUR ---
REPORT RECEIVED FROM SAL FALLON. pt RESTING IN THE BED. IV ABX INFUSING PER ORDER. pt BOARD UPDATED. pt DENIES ANY OTHER NEEDS AT THIS TIME. CALL LIGHT WITHIN REACH.
[2024-04-24] MEDS ORDERED: MAGNESIUM SULFATE 2 GM/50 ML BAG IV ONE (19:15)
--- NOTE | 2024-04-24 20:45 | NUR ---
ASSESSMENT AND VITAL SIGNS DONE. pt RESTING IN THE BED. IV MEDS FINISHED ADMINISTERING. pt ASK FOR SOMETHING TO HELP HER SLEEP PLAN DICUSSED WITH pt ABOUT WHAT SHE TAKE NORMALLY AND ABOUT CALLING THE DOCTOR. WATER REFRESHED. CALL LIGHT WITHIN REACH. NO OTHER NEEDS AT THIS TIME. BOWEL TONES ACTIVE.
--- NOTE | 2024-04-24 21:05 | NUR ---
CALLED . pt WANTED VISERIL TO HELP HER SLEEP. PLACED ORDER. VERIFIED WITH REPEAT BACK METHOD.
[2024-04-24] MEDS ORDERED: hydrOXYzine pamoate 25 MG CAP PO PRN (21:15)
--- NOTE | 2024-04-24 22:04 | NUR ---
IN RM TO GIVE pt PRN INSOMNIA MEDS. pt DENIES ANY OTHER NEEDS AT THIS TIME. CALL LIGHT WITHIN REACH.
[2024-04-25] VITALS (10 sets, daily range): BP systolic 111–148; BP diastolic 60–92
--- NOTE | 2024-04-25 00:45 | NUR ---
SCHEDULED MEDS ADMINISTERED. pt RESTING IN THE BED WITH EYES CLOSED. NO OTHER NEEDS AT THIS TIME.
--- NOTE | 2024-04-25 03:46 | NUR ---
pt RESTING IN THE BED WITH EYES CLOSED. RR EVEN AND UNLABORED. CALL LIGHT WITHIN REACH. NO OTHER NEEDS AT THIS TIME. pt INDEPENDENT IN THE RM.
--- NOTE | 2024-04-25 04:40 | NUR ---
pt CALLED FOR HER IV ALARMING. THIS RN IN RM. IV FINISHED. VITAL SIGNS AND ASSESSMENT DONE. pt RESTING IN THE BED. BOWEL TONES ACTIVE. CALL LIGHT WITHIN REACH. NO OTHER NEEDS AT THIS TIME.
[2024-04-25 05:34] LABS: BASOPHILS 0.5 % (0-2); EOSINOPHILS 3.4 % (0-6); HEMATOCRIT 36.9 % (35.0-50.0); HEMOGLOBIN 13.3 g/dL (12.0-18.0); LYMPHOCYTES 28.4 % (24-44); MCH 32.1 (27-36); MCHC 36.2 g/dl (30-36); MCV 88.7 fl (81-99); MONOCYTES 10.1 % (0-12); NEUTROPHILS 57.6 % (39-80); PLATELET COUNT 353 K/uL (140-440); RBC 4.15 M/ul (4.3-5.7); RDW 12.5 (10.5-15.0)
[2024-04-25 05:42] LABS: ANION GAP 12.9 (7-21); BUN/CREATININE RATIO 8.13 (6.0-28.6); CREATININE, SERUM 0.86 mg/dL (0.55-1.02); MAGNESIUM 2.4 mg/dL (1.8-2.4); POTASSIUM 3.9 mmol/L (3.5-5.1)
--- NOTE | 2024-04-25 07:25 | NUR ---
REPORT RECEIVED FROM MATTRESS AND FOUNDATION SEWER RN BORIS. PATIENT IS LYING IN BED AND LOOKING ON THEIR PHONE. PATIENT STATED NO FURTHER NEEDS AT THIS TIME. CALL LIGHT AND PERSONAL BELONGINGS ARE WITHIN REACH.
--- NOTE | 2024-04-25 08:42 | NUR ---
PATIENT IS LYING IN BED AND RESPONDING TO RN UPON ENTERING THE ROOM. PATIENT BREAKFAST TRAY REMOVED. HAT IN THE TOILET EMPTIED AT THIS TIME. PATIENT REQUESTING A CUP OF COFFEE. SANDY WILLS GOT THE FOR THE PATIENT. PATIENT STATED NO FURTHER NEEDS AT THIS TIME. CALL LIGHT AND PERSONAL BELONGINGS ARE WITHIN REACH.
--- NOTE | 2024-04-25 09:06 | NUR ---
Patient requested coffee and it was given. No other cares were asked for.
--- NOTE | 2024-04-25 10:15 | NUR ---
FULL ASSESSMENT COMPLETE AND DOCUMENTED IN THE CHART. PATIENT IS ALERT AND ORIENTED TIMES FOUR. PATIENT IS ON ROOM AIR AND LUNG SOUNDS ARE CLEAR BILATERALLY. CARDIAC WITH NORMAL S1 AND S2 ON AUSCULTATION. RADIAL AND PEDAL PULSES ARE STRONG BILATERALLY. PATIENT IS ON A LOW FIBER DIET AND BOWEL TONES ARE ACTIVE ALL FOUR QUADRANTS. ABDOMEN IS TENDER TO PALPATION. LAST BM WAS 04/25/24. IV SITE FLUSHED WITH 10 ML NORMAL SALINE. IV TENDER WITH INITIAL FLUSH. PATIENT EDUCATED IF THAT SENSATION CONTINUES WITH THE ZOSYN INFUSING AT 25 ML/HR. IV DRESSING IS CLEAN, DRY, AND INTACT. SKIN WITH SCATTERED TATTOOS AND SCATTERED BRUISING NOTED. PATIENT IS INDEPENDENT IN THE ROOM AND HAS SCD'S ON. SENSATION INTACT AND PATIENT WITH NO COMPLAINTS OF NUMBNESS AND TINGLING. PATIENT IS NOW TALKING TO CASE MANAGEMENT AT THIS TIME. PATIENT GIVEN A FRESH CUP OF ICE WATER AT THIS TIME. PATIENT STATED NO FURTHER NEEDS. CALL LIGHT AND PERSONAL BELONGINGS ARE WITHIN REACH.
--- NOTE | 2024-04-25 11:14 | NUR ---
PATIENT IS SITTING UPRIGHT IN BED AND ON THEIR PHONE. PATIENT STATED NO PAIN OR DISCOMFORT AT THE IV SITE. PATIENT STATED NO FURTHER NEEDS AT THIS TIME. CALL LIGHT AND PERSONAL BELONGINGS ARE WITHIN REACH.
--- NOTE | 2024-04-25 11:45 | NUR ---
SCD machine was continuously beeping. Machine was reset. No other cares were requested.
--- NOTE | 2024-04-25 12:43 | NUR ---
PATIENT WITH TWO VISITORS IN THE ROOM AT THIS TIME. HAT IN TOILET EMPTIED. PATIENT STATES STARTING TO HAVE A LITTLE PAIN BUT "WANT TO HOLD OUT". PATIENT MENTIONED SHE THOUGHT IT WAS FROM EATING LUNCH AND MAYBE EATING TOO FAST. RN EDUCATED PATIENT TO CALL IF SHE CHANGES HER MIND AND WOULD LIKE A PRN PAIN MEDICATION. PATIENT LUNCH TRAY REMOVED AT THIS TIME. PATIENT STATED NO FURTHER NEEDS AT THIS TIME, CALL LIGHT AND PERSONAL BELONGINGS ARE WITHIN REACH.
--- NOTE | 2024-04-25 13:35 | NUR ---
VISITED DURING SPIRITUAL CARE ROUNDS. PT IN OVERALL GOOD SPIRITS, EXPRESSED CONCERN REGARDING UNCERTAINTY OF DIAGNOSIS, DESIRE FOR ANSWERS. PHYSICIAN SURGEON PROVIDED SUPPORTIVE PRESENCE, HOSPITALITY, ANXIETY CONTAINMENT, PRAYER, FACILITATED INTERACTION WITH THERAPY ANIMAL. PT EXPRESSED GRATITUDE.
--- NOTE | 2024-04-25 14:00 | NUR ---
RN ROUNDING ON PT - PT REPORTS INCREASED PAIN TO 6-7/10 AFTER STARTING LOW FIBER DIET. PT REQUESTS FULL LIQUID DIET AT THIS TIME. PRN NORCO ADMINISTERED FOR PAIN. SURGEON TO BE UPDATED ON PAIN WITH DIET CHANGE WHEN ROUNDING, IN OR CASE AT THIS TIME. PT DENIES FURTHER NEEDS, CALL LIGHT IN REACH.
--- NOTE | 2024-04-25 14:11 | NUR ---
MD NOTIFIED OF INCREASED PAIN WITH CHANGE OF DIET, NEW DIET ORDERED.
--- NOTE | 2024-04-25 15:09 | NUR ---
Harp Maker in room. Patient asked to see nurse and RN Renea was notified. No other cares were requested.
[2024-04-25] MEDS ORDERED: metroNIDAZOLE 250 MG TAB PO SCH (17:00)
--- NOTE | 2024-04-25 18:14 | NUR ---
RN ROUNDING IN ROOM - RESTING IN BED WATCHING TV. DENIES PAIN AFTER FULL LIQUID DINNER. CALL LIGHT IN REACH, DENIES FURTHER NEEDS.
--- NOTE | 2024-04-25 18:47 | NUR ---
Patient was lying awake in bed with the TV on. No cares were requested.
--- NOTE | 2024-04-25 19:32 | NUR ---
PT RESTING IN BED, VISITORS AT BEDSIDE. PT REPORTS RIGHT HAND IV RED AND PAINFUL. PT REPORTS INCREASED PAIN W/ FLUSH. IV DC'D INTACT. DENIES FURTHER NEEDS AT THIS TIME. CALL LIGHT WITHIN REACH.
--- NOTE | 2024-04-25 19:39 | EKG ---
[facility] [address] [place], [place] [address] Signed Normal sinus rhythm Normal ECG When compared with ECG of 17-OCT-2016 22:01, T wave amplitude has decreased in Lateral leads Confirmed by Mat Blackmon MD ([id number]) on 04/25/2024 7:39:17 PM Electronically Signed By: MAT BLACKMON MD 04/25/241938 PATIENT NAME: SUNSHINE JORGE MARTINEZ Electrocardiogram DATE OF : 80 PHYSICIAN: MAT BLACKMON MD REPORT #: [id number] REPORT IS CONFIDENTIAL AND NOT TO BE RELEASED WITHOUT AUTHORIZATION
--- NOTE | 2024-04-25 20:30 | NUR ---
PT RESTING COMFORTABLY IN BED, CURRENTLY HAS SCD'S OFF. REPORTS LEFT ABD/FLANK PAIN. DECLINES NEED FOR PAIN MED AT THIS TIME. LSC. HRR. BTA, REPORTS FLATUS AND BM TODAY. ABD SLIGHTLY TENDER TO LEFT SIDE. VSS. PT UP TO SHOWER AFTER SET UP WHILE NO IV IN PLACE. IND W/ AMBULATION
[2024-04-25] MEDS ORDERED: CIPROFLOXACIN 500 MG TAB PO SCH (21:00)
--- NOTE | 2024-04-25 21:43 | NUR ---
NEW IV PLACED TO LFA X 1 ATTEMPT, 20G. PT TOLERATED WELL. SMALL BRUISE AT INSERTION SITE. SALINE LOCKED. PT PROVIDED MILK AND PUDDING PER REQUEST.
--- NOTE | 2024-04-25 22:05 | NUR ---
PT MEDICATED W/ PRN OXYCODONE FOR C/O LLE PAIN. PT AMBULATED TO W/ SBA TO DO OWN BED BATH. GUARDS AT BEDSIDE.
--- NOTE | 2024-04-25 22:51 | NUR ---
PT AWAKE, REQUESTING SLEEP AID-ADMINISTERED PRN VISTARIL PER EMAR. PAIN DECREASED TO 3/10, TOLERABLE PER PT.
--- NOTE | 2024-04-26 01:23 | NUR ---
PT APPEARS ASLEEP. NO DISTRESS NOTED. CALL LIGHT WITHIN REACH.
--- NOTE | 2024-04-26 02:53 | NUR ---
PT SLEEPING SOUNDLY. APPEARS COMFORTABLE. CALL LIGHT W/IN REACH.
--- NOTE | 2024-04-26 05:09 | NUR ---
PT SLEEPING SOUNDLY. RESP EVEN AND UNLABORED.
[2024-04-26 05:35] LABS: BASOPHILS 0.7 % (0-2); EOSINOPHILS 3.7 % (0-6); HEMATOCRIT 38.7 % (35.0-50.0); HEMOGLOBIN 13.7 g/dL (12.0-18.0); LYMPHOCYTES 33.8 % (24-44); MCH 31.7 (27-36); MCHC 35.5 g/dl (30-36); MCV 89.3 fl (81-99); MONOCYTES 8.9 % (0-12); NEUTROPHILS 52.9 % (39-80); PLATELET COUNT 362 K/uL (140-440); RBC 4.33 M/ul (4.3-5.7); RDW 12.4 (10.5-15.0)
[2024-04-26 05:47] LABS: BUN/CREATININE RATIO 12.04 (6.0-28.6); CALCIUM 9.4 mg/dL (8.5-10.1); CREATININE, SERUM 0.83 mg/dL (0.55-1.02); MAGNESIUM 2.1 mg/dL (1.8-2.4)
[2024-04-26 06:23] VITALS: BP 111/70
--- NOTE | 2024-04-26 06:25 | NUR ---
DECISION SUPPORT MANAGER OBTAINED VITALS AND I&O. PT ICE WATER REFILLED. PT STATES NO FURTHER NEEDS AT THIS TIME. CALL LIGHT WITHIN REACH.
[2024-04-26 06:29] VITALS: BP 111/70
--- NOTE | 2024-04-26 06:49 | NUR ---
PT RESTING COMFORTABLY. DENIES ANY NEEDS AT THIS TIME.
--- NOTE | 2024-04-26 07:29 | NUR ---
REPORT RECEIVED FROM LACROSSE COACH RN. PATIENT RESTING IN BED. DENIES ANY NEEDS AT THIS TIME. CALL LIGHT WITHIN REACH.
[2024-04-26 08:02] VITALS: BP 121/66
--- NOTE | 2024-04-26 08:06 | NUR ---
PATIENT RESTING IN BED. LUNGS CTA, BOWEL TONES ACITVE X 4 QUADRANTS. C/O PAIN TO LLQ AND LEFT FLANK. REPORTS PAIN IS A 3/10. DENIES NEED FOR PAIN MEDICATIONS. GIVEN ABX WITH SALTINE CRACKERS. FRESH ICE WATER GIVEN. VSS. PATIENT DENIES PASSING OF GAS AT THIS TIME. DENIES ANY NAUSEA. ABD TENDER TO PALPATION IN LLQ. NO FURTHER NEEDS AT THIS TIME. CALL LIGHT WITHIN REACH.
--- NOTE | 2024-04-26 09:59 | NUR ---
Patient was sitting upright in bed and alert. No cares were requested.
--- NOTE | 2024-04-26 10:10 | NUR ---
Spoke with Velia. She plans on dc today. Denies needs. Tolerating her diet. Pt will fu with Dr. Evans.
--- NOTE | 2024-04-26 10:15 | NUR ---
MD AREVALO IN TO SEE PATIENT. PATIENT WITH FAMILY AT BEDSIDE. DENIES ANY NEEDS AT THIS TIME. CALL LIGHT WITHIN REACH.
--- NOTE | 2024-04-26 10:28 | NUR ---
UR CONCURRENT CLINICAL REVIEW: [facility] INPT CRITERIA FOR ABD PAIN: MEETS GL DAY 2 FOR DC. SURGEON CLEARED PATIENT FOR DC. ODS EOCCO INPT 04/23/24 @ 7306 ORDER MATCHES REG UPDATED CLINICALS WILL BE FAXED TO [facility] FOR AUTH REVIEW DISCHARGE TO HOME WHEN STABLE 04/29/24
[2024-04-26] MEDS ORDERED: METRONIDAZOLE250 MG PO (11:15)
[2024-04-26] MEDS ORDERED: CIPROFLOXACIN500 MG PO (11:15)
[2024-04-26] MEDS ORDERED: OXYCODONE HCL5 MG PO (11:18)
[2024-04-26 11:46] VITALS: BP 142/86
--- NOTE | 2024-04-26 12:02 | NUR ---
1200 ANTIBIOTIC ADMINSTERED PRIOR TO PATIENT DISCHARGE. PATIENT DISCHARGED WITH ALL BELONGINGS AND PERSCRIPTIONS. DISCHARGE INSTRUCTIONS GIVEN AND PATIENT WITH VERBAL UNDERSTANDING OF DISCHARGE INSTRUCTIONS. PATIENT WALKED TO FRONT OF HOPSPITAL BY RN.
== END 2024-04-26 12:00 | disposition home or self-care (01) | DRG 391 ==
LOC: ED 10:48 → MS 15:04
PROVIDERS: Emergency Medicine; ADMIT Student in an Organized Health Care Education/Training Program; ATTEND Student in an Organized Health Care Education/Training Program
DX: K57.20 Diverticulitis of large intestine with perforation and abscess without bleeding (principal); K65.1 Peritoneal abscess; I10 Essential (primary) hypertension; F43.10 Post-traumatic stress disorder, unspecified; F41.0 Panic disorder [episodic paroxysmal anxiety]; E03.9 Hypothyroidism, unspecified; Z88.2 Allergy status to sulfonamides; Z88.8 Allergy status to other drugs, medicaments and biological substances; Z90.49 Acquired absence of other specified parts of digestive tract; Z90.710 Acquired absence of both cervix and uterus; Z87.442 Personal history of urinary calculi; Z98.51 Tubal ligation status; Z79.899 Other long term (current) drug therapy
CPT/HCPCS: 36415; 74177; 80048; 80053; 81001; 83690; 83735; 84703; 85025; 93005; 93010; A9270; J1171; J1885; J2270; J2405; J2543; J3475; J7030; J7121; Q0177; Q9967

== ENCOUNTER 2024-07-01 09:25 | Emergency (ER) | payer OTHER ==
[~2024-07-01] VITALS: Ht 170.2 cm; Wt 94.3 kg
[~2024-07-01 09:25] MED LIST changes: +METRONIDAZOLE250 MG PO; +OXYCODONE HCL5 MG PO
[2024-07-01] MEDS ORDERED: KETOROLAC TROMETHAMINE 15 MG/ML VIAL IV ONE (09:45)
[2024-07-01] MEDS ORDERED: ondansetron HCL 4 MG/2 ML VIAL IV PRN (09:45)
[2024-07-01 09:53] LABS: BILIRUBIN, URINE NEGATIVE (negative); BLOOD/HGB, URINE NEGATIVE (Negative); KETONE, URINE NEGATIVE (Negative); LEUK ESTERASE, URINE NEGATIVE (negative); NITRITE, URINE NEGATIVE (negative)
[2024-07-01 10:00] LABS: BASOPHILS 0.7 % (0-2); EOSINOPHILS 4.4 % (0-6); HEMATOCRIT 39.9 % (35.0-50.0); HEMOGLOBIN 14.1 g/dL (12.0-18.0); LYMPHOCYTES 27.2 % (24-44); MCH 31.6 (27-36); MCHC 35.4 g/dl (30-36); MCV 89.1 fl (81-99); MONOCYTES 8.7 % (0-12); PLATELET COUNT 222 K/uL (140-440); RBC 4.48 M/ul (4.3-5.7)
[2024-07-01] MEDS ORDERED: MORPHINE SULFATE 4 MG/ML VIAL IV ONE ×2 (10:00→11:15)
[2024-07-01 10:22] LABS: ALBUMIN 3.3 g/dL (3.4-5.0); ANION GAP 10.7 (7-21); BILIRUBIN, TOTAL 0.3 ng/dL (0.2-1.0); BUN/CREATININE RATIO 14.1 (6.0-28.6); CALCIUM 8.6 mg/dL (8.5-10.1); CREATININE, SERUM 0.78 mg/dL (0.55-1.02); POTASSIUM 3.7 mmol/L (3.5-5.1); PROTEIN, TOTAL 6.6 g/dL (6.4-8.2)
[2024-07-01] MEDS ORDERED: ONDANSETRON ODT4 MG PO (11:23)
[2024-07-01] MEDS ORDERED: HYDROCODON-ACE1 EA10 PO (11:23)
[2024-07-01 12:13] VITALS: BP 147/89
== END 2024-07-01 12:14 | disposition home or self-care (01) ==
LOC: ED 09:25
PROVIDERS: Emergency Medicine
DX: N13.2 Hydronephrosis with renal and ureteral calculous obstruction (principal); I10 Essential (primary) hypertension; E89.0 Postprocedural hypothyroidism; Z87.442 Personal history of urinary calculi; Z87.891 Personal history of nicotine dependence; Z90.49 Acquired absence of other specified parts of digestive tract; Z88.2 Allergy status to sulfonamides; Z88.1 Allergy status to other antibiotic agents; Z88.8 Allergy status to other drugs, medicaments and biological substances; Z79.899 Other long term (current) drug therapy
CPT/HCPCS: 36415; 74177; 80053; 81003; 83690; 84703; 85025; 96375; 96376; 99284-25; J1885; J2270; J2405; Q9967

== ENCOUNTER 2024-08-05 13:00 | Day surgery (SDC) | payer OTHER ==
[~2024-08-05] VITALS: Ht 170.2 cm; Wt 90.4 kg
[~2024-08-05 13:00] MED LIST changes: +IBLOOD GLUCOSE TEST STRIP 1 EA TEST VI PRN; +LACTATED RINGER'S 1,000 ML IV SCH; +LIDOCAINE HCL 1% 5 ML SDV INJ ONE; +MIDAZOLAM HCL 5 MG/5 ML VIAL IV PRN; +ONDANSETRON ODT4 MG PO; +fentaNYL citrate 100 MCG/2 ML VIAL IV PRN
[2024-08-05 13:24] VITALS: BP 134/90
[2024-08-05] MEDS ORDERED: fentaNYL citrate 100 MCG/2 ML VIAL ONE (13:44)
[2024-08-05] MEDS ORDERED: MIDAZOLAM HCL 5 MG/5 ML VIAL ONE ×2 (13:44→14:12)
[2024-08-05] MEDS ORDERED: diphenhydrAMINE HCL 50 MG/ML VIAL ONE (14:19)
--- NOTE | 2024-08-05 14:46 | NUR ---
08/05/24 1446 Keren Welch PATIENT'S OXYGEN SATURATION REMAINS 100% ON 3L VIA NC. OXYGEN IS DISCONTINUED AT THIS TIME.
[2024-08-05 15:08] VITALS: BP 105/78
--- NOTE | 2024-08-05 20:19 | OR ---
[facility] [address], [place] [address] Signed DATE OF OPERATION: 08/05/2024 SURGEON: Susanne Arevalo MD PREOPERATIVE DIAGNOSES: 1. Known diverticulosis with history of minimal inflammatory change to cecum. Current symptoms, constipation and episodic left lower abdominal pain. 2. Family history of colon cancer maternal great aunt and brother with Crohn disease and paternal cousin with Crohn disease. POSTOPERATIVE DIAGNOSIS: Sigmoid diverticulosis, otherwise normal. PROCEDURE: Total colonoscopy to cecum with biopsy of rectum. ANESTHESIA: Intravenous sedation; fentanyl 200 mcg and Versed 10 mg and additional 50 mg Benadryl. INDICATION: This 43-year-old white woman is a patient of Niraj Pickett PA-C, referred for colonoscopy. She last underwent colonoscopy in June of 2017 at which time, she was found to have diverticulosis and minimal inflammatory change of the cecum. Biopsies confirmed normal cecum. She did require fentanyl 200 mcg and 15 mg of Versed at that time. Her only medication of note in that regard at this time is Xanax on a daily basis. She is referred for screening colonoscopy as well as for issues related to occasional left lower abdominal pain and constipation. She understands the risk of colonoscopy including but not limited to bleeding, infection, and perforation and wished to proceed. FINDINGS: The prep was quite excellent. Complete colonoscopy was undertaken of the cecum. The patient had significant tolerance to the medications given to the combination including Benadryl that was certainly acceptable for allowing for complete colonoscopy without undue discomfort. DESCRIPTION OF PROCEDURE: The patient was brought to the endoscopy suite and placed in the lateral decubitus position, given intravenous sedation with propofol and fentanyl. The patient had impressive resistance to the sedating effects of the medication. Additional medication Electronically Signed By: SUSANNE AREVALO MD 08/05/242018 PATIENT NAME: SUNSHINE JORGE OPERATIVE REPORT DATE OF : 80 REPORT #: [id number] PHYSICIAN: SUSANNE AREVALO MD PCP: NIRAJ PICKETT PA-C REPORT IS CONFIDENTIAL AND NOT TO BE RELEASED WITHOUT AUTHORIZATION [facility] [address], [place] [address] Signed was given as needed. Benadryl was given as well. Digital rectal examination was normal. An Olympus video colonoscope was passed in the rectum and manipulated throughout the colon noting diverticula of the sigmoid. The scope was ultimately advanced to the cecum. Ileocecal valve and appendiceal orifice were normal. A very good prep was noted. The scope was withdrawn from the cecum and examination throughout showed no sign of abnormality, only diverticula of the sigmoid and this was not extensive particularly. The rectum was biopsied to assess for occult colitis. Retroflexed view was otherwise normal as well. Scope was removed and the patient was taken to the recovery room in good condition. CONCLUDING DIAGNOSES: 1. Diverticula of sigmoid. No evidence of polyps. 2. Resistance to typical sedation. PLAN: Recommend repeat colonoscopy in 10 years, sooner if symptoms should develop. Would recommend high-fiber diet. If the patient should require colonoscopy again, it may be advisable to use propofol as a sedating agent as she has significant tolerance to opiates and benzodiazepines, though the addition of antihistamine Benadryl was helpful today. Susanne Arevalo MD JM/MODL /[id number] cc: Niraj Pickett PA-C Copies: ~ Electronically Signed By: SUSANNE AREVALO MD 08/05/242018 PATIENT NAME: SUNSHINE JORGE OPERATIVE REPORT DATE OF : 80 REPORT #: [id number] PHYSICIAN: SUSANNE AREVALO MD PCP: NIRAJ PICKETT PA-C REPORT IS CONFIDENTIAL AND NOT TO BE RELEASED WITHOUT AUTHORIZATION
--- NOTE | 2024-08-07 08:09 | PATH ---
[facility] [address] [facility] [place], [place] [address] Signed SPECIMEN(S): A RECTUM BIOPSY SPECIMEN SOURCE: A. RECTUM BIOPSY CLINICAL HISTORY: Surveillance sigmoid diverticuli. FINAL PATHOLOGIC DIAGNOSIS: Rectum, biopsy: - Colonic mucosa with no significant pathologic changes BRP MICROSCOPIC EXAMINATION: Histologic sections of all submitted blocks are examined by light microscopy. These findings, together with the gross examination, support the pathologic diagnosis. GROSS DESCRIPTION: The specimen, labeled and designated "Luis Eduardo Schneider, rectum biopsy," is received in formalin and consists of three lynn soft tissue fragments, ranging from 0.1-0.5 cm. Entirely submitted in (A1). AB (under the direct supervision of a pathologist) The Gross Description was prepared using a voice recognition system. The report was reviewed for accuracy; however, sound-alike word errors, addition and/or deletions may occur. If there is any question about this report, please contact Client Services. ADDITIONAL NOTES: Immunohistochemical and/or in situ hybridization studies if performed in this case included appropriate positive controls that reacted as expected. This test was developed and its performance characteristics determined by [facility]. It has not been cleared or approved by the U.S. Food and Drug Administration. The FDA has determined that such clearance or approval is not necessary. This test is used for clinical purposes. It should not be regarded as investigational or for research. [facility] is certified under the Clinical Laboratory Improvement Amendments of 1988 (CLIA) as qualified to perform high complexity clinical laboratory testing. PATIENT NAME: SUNSHINE SCHNEIDER PATHOLOGY DATE OF : [birth year] REPORT #: [id number] PHYSICIAN: RICHAR WOOD PCP: ISABEL PICKETT PA-C REPORT IS CONFIDENTIAL AND NOT TO BE RELEASED WITHOUT AUTHORIZATION [facility] [address] [facility] [place] [place] [address] Signed PERFORMING LABORATORY: Technical [place] [address] (CLIA# [id number]). Professional interpretation was performed by [facility] [place] [address] (CLIA#: [id number]). Diagnostician: Paulie Grant MD Pathologist Electronically Signed 08/07/2024 Copies: ~ PATIENT NAME: SUNSHINE SCHNEIDER PATHOLOGY DATE OF : [birth year] REPORT #: [id number] PHYSICIAN: RICHAR WOOD PCP: ISABEL PICKETT PA-C REPORT IS CONFIDENTIAL AND NOT TO BE RELEASED WITHOUT AUTHORIZATION
== END 2024-08-05 15:17 | disposition home or self-care (01) ==
LOC: OPS 13:00 → DS 13:01 → OPS 14:00 → DS 14:00 → OPS 15:17
PROVIDERS: ATTEND Surgery
PROC: 0DBP8ZX Excision of Rectum, Via Natural or Artificial Opening Endoscopic, Diagnostic (ICD-10-PCS; principal; 2024-08-05 14:00)
DX: Z12.11 Encounter for screening for malignant neoplasm of colon (principal); K57.30 Diverticulosis of large intestine without perforation or abscess without bleeding; K59.09 Other constipation; E89.0 Postprocedural hypothyroidism; Z88.2 Allergy status to sulfonamides; Z88.8 Allergy status to other drugs, medicaments and biological substances; Z90.49 Acquired absence of other specified parts of digestive tract; Z90.710 Acquired absence of both cervix and uterus; Z80.0 Family history of malignant neoplasm of digestive organs; Z83.79 Family history of other diseases of the digestive system
CPT/HCPCS: 88305; 99153; G0500; J1200; J2250; J3010; J7121

== ENCOUNTER 2024-12-20 20:26 | Emergency (ER) | payer OTHER ==
[~2024-12-20] VITALS: Ht 170.2 cm; Wt 92.9 kg
[~2024-12-20 20:26] MED LIST changes: -IBLOOD GLUCOSE TEST STRIP 1 EA TEST VI PRN; -LACTATED RINGER'S 1,000 ML IV SCH; -LIDOCAINE HCL 1% 5 ML SDV INJ ONE; -MIDAZOLAM HCL 5 MG/5 ML VIAL IV PRN; -fentaNYL citrate 100 MCG/2 ML VIAL IV PRN
[2024-12-20 22:10] VITALS: BP 129/78
== END 2024-12-20 22:30 | disposition home or self-care (01) ==
LOC: ED 20:26
DX: S93.401A Sprain of unspecified ligament of right ankle, initial encounter (principal); I10 Essential (primary) hypertension; F43.10 Post-traumatic stress disorder, unspecified; Z87.891 Personal history of nicotine dependence; Z88.2 Allergy status to sulfonamides; Z88.8 Allergy status to other drugs, medicaments and biological substances
CPT/HCPCS: 73560; 73610; 99283

== ENCOUNTER 2025-02-27 15:45 | Emergency (ER) | payer OTHER ==
[~2025-02-27] VITALS: Ht 170.2 cm; Wt 95.1 kg
[2025-02-27] MEDS ORDERED: KETOROLAC TROMETHAMINE 15 MG/ML VIAL IV ONE (17:15)
[2025-02-27 17:21] LABS: BLOOD/HGB, URINE NEGATIVE (Negative); KETONE, URINE NEGATIVE (Negative); LEUK ESTERASE, URINE NEGATIVE (negative); NITRITE, URINE NEGATIVE (negative)
[2025-02-27 17:25] LABS: BASOPHILS 0.9 % (0.1-1.2); EOSINOPHILS 9.1 % (0.7-5.8); LYMPHOCYTES 30.2 % (19.3-51.7); MCH 29.5 PG (25.6-32.2); MCHC 34.0 g/dL (32.2-35.5); MCV 86.7 fL (79.4-94.8); MONOCYTES 7.5 % (4.7-12.5); NEUTROPHILS 52.0 % (34.0-71.1); RBC 5.05 M/uL (3.93-5.22)
[2025-02-27 17:40] LABS: ALT (SGPT) 14.0 U/L (14-59); AST (SGOT) 12.0 U/L (15-37); GLOMERULAR FILTRATION RATE,EST 101.0 mL/min (>60); PROTEIN, TOTAL 7.2 g/dL (6.4-8.2); UREA NITROGEN 11.0 mg/dL (7-18)
[2025-02-27] MEDS ORDERED: MORPHINE SULFATE 4 MG/ML VIAL IV ONE (18:00)
[2025-02-27] MEDS ORDERED: SODIUM CHLORIDE 0.9% 1,000 ML IV PRN (18:00)
[2025-02-27] MEDS ORDERED: ONDANSETRON ODT8 MG PO (18:54)
[2025-02-27] MEDS ORDERED: ONDANSETRON 4 MG HOME.PACK SL ONE (19:00)
[2025-02-27] MEDS ORDERED: HYDROCODONE BIT/ACETAMINOPHEN 5/325 MG 1 TAB HOME.PACK PO ONE (19:00)
[2025-02-27 19:39] VITALS: BP 168/85
== END 2025-02-27 19:41 | disposition home or self-care (01) ==
LOC: ED 15:45
PROVIDERS: Emergency Medicine
DX: K52.9 Noninfective gastroenteritis and colitis, unspecified (principal); I10 Essential (primary) hypertension; Z87.891 Personal history of nicotine dependence; Z88.2 Allergy status to sulfonamides; Z88.1 Allergy status to other antibiotic agents
CPT/HCPCS: 36415; 74177; 80053; 81003; 84703; 85025; 96361; 96374; 96375; 99284-25; A9270; J1885; J2270; J2405; J7030; Q9967

== ENCOUNTER 2025-04-14 10:24 | Day surgery (SDC) | payer OTHER ==
[~2025-04-14] VITALS: Ht 170.2 cm; Wt 91.0 kg
[~2025-04-14 10:24] MED LIST changes: +ALPRAZOLAM0.5 MG PO; +CEFAZOLIN SODIUM 2 GM in SODIUM CHLORIDE 0.9% 100 ML IV SCH; +HYDROXYZINE HCL50 MG PO; +IBLOOD GLUCOSE TEST STRIP 1 EA TEST VI PRN; +LACTATED RINGER'S 1,000 ML IV SCH; +LIDOCAINE HCL 1% 5 ML SDV INJ ONE
[2025-04-14 10:48] VITALS: BP 132/96
[2025-04-14] MEDS ORDERED: DEXAMETHASONE SOD PHOS 10 MG/ML VIAL ONE ×2 (11:32→12:37)
[2025-04-14] MEDS ORDERED: Ropivacaine HCl 0.5% 30 ML VIAL ONE ×2 (11:35→12:34)
[2025-04-14] MEDS ORDERED: LIDOCAINE HCL 2% 5 ML SDV ONE ×2 (11:35→12:33)
[2025-04-14] MEDS ORDERED: MIDAZOLAM HCL 2 MG/2 ML VIAL ONE (11:51)
[2025-04-14] MEDS ORDERED: HYDROCODONE/ACETA 7.5/325 TAB PO PRN (12:45)
[2025-04-14] MEDS ORDERED: KETOROLAC TROMETHAMINE 15 MG/ML VIAL IV PRN (12:45)
[2025-04-14] MEDS ORDERED: NALOXONE HCL 0.4 MG SYR IV PRN (13:30)
[2025-04-14] MEDS ORDERED: fentaNYL citrate 50 MCG/ML SDV IV PRN (13:30)
[2025-04-14] MEDS ORDERED: PROCHLORPERAZINE EDISYLATE 10 MG/2 ML VIAL IV PRN (13:30)
[2025-04-14] MEDS ORDERED: IBLOOD GLUCOSE TEST STRIP 1 EA TEST VI PRN (13:30)
[2025-04-14] MEDS ORDERED: HYDROmorphone HCL 1 MG/ML SYR IV PRN (13:30)
[2025-04-14] MEDS ORDERED: SEVOFLURANE 250 ML BTL INH ONE (13:34)
[2025-04-14] MEDS ORDERED: HYDROCODON-ACE1 EA11 PO (14:24)
--- NOTE | 2025-04-14 14:40 | NUR ---
04/14/25 1440 Josy Trotter 1421: PT ARRIVED TO PACU VIA STRETCHER. PT ON 6L VIA MASK. PT HAS BOOT IN PLACE TO RIGHT ANKLE. BRISK CAP REFILL. 1430: PT TITRATED TO RA AT THIS TIME. PT RESPONSIVE TO STIMULI. 1435: PT REMAINS ON RA AND RESPONSIVE TO STIMULI AT THIS TIME.
--- NOTE | 2025-04-14 14:55 | NUR ---
PT ARRVIES TO DS FROM PACU VIA STRETCHER. PT IS A&O AND ASKING APPROPRIATE QUESTIONS AT THIS TIME. PT REPORTS ONLY NUMBNESS IN RLE AND CAN LIFT LEG. BOOT IN PLACE AND ELEVATED ON PILLOW. REPORT RECEIVED FROM [place], CALL LIGHT WITHIN REACH, ORAL FOOD AND COFFEE/WATER PROVIDED. PT STATES NO FURTHER NEEDS OR QUESTIONS AT THIS TIME. PT ON RA, O2 >90%, RESPIRATIONS EVEN AND UNLABORED.
[2025-04-14 14:56] VITALS: BP 121/76
--- NOTE | 2025-04-14 15:05 | NUR ---
PT TO RESTROOM VIA WC FOR URINE VOID OF 500 ML. PT STATES VERBAL UNDERSTANDING THAT TOE TOUCH ONLY. GAIT IS STEADY W/SUPPORT ON DOMINANT LEG. PT BACK TO BED AND GETTING DRESSED W/FRIEND ASSISTANCE. CALL LIGHT WITHIN REACH.
[2025-04-14 15:52] VITALS: BP 136/79
--- NOTE | 2025-04-14 15:55 | NUR ---
IN PT ROOM FOR DC EDUCATION AND VS. PT STATES VERBAL UNDERSTANDING TO DC EDUCATION AT THIS TIME. IV DC'ED. ALL BELONGINGS IN PT POSSESSION AT THIS TIME. PT OFF OF UNIT VIA WC TO PASSENGER SIDE OF FRIENDS VEHICLE. PT REPORTS NO FURTHER QUESTIONS OR NEEDS AT THIS TIME.
[2025-04-14] MEDS ORDERED: ASPIRIN 325 MG TAB PO SCH (21:00)
--- NOTE | 2025-04-17 16:19 | OR ---
[facility] [address] [place], [place] [address] Signed DATE OF OPERATION: 04/14/2025 SURGEON: Melissa Dillard MD PREOPERATIVE DIAGNOSIS: Chronic ankle instability with talar chondromalacia. POSTOPERATIVE DIAGNOSIS: Chronic ankle instability with talar chondromalacia. PROCEDURE PERFORMED: Ankle arthroscopy with debridement, modified Brostrom, left ankle. SAFETY TECHNICIAN: Madison Atkinson PA-C. Madison was present and critical for all portions of procedure. ANESTHESIA: General. TOURNIQUET TIME: 43 minutes. IMPLANTS: Two Arthrex FiberTak and two Arthrex SwiveLocks. BRIEF HISTORY: Sunshine is a 44-year-old female with chronic instability in her ankle and pain. MRI was consistent with the chronically torn ligaments and a small OCD lesion in the anteromedial talar dome. Risks and benefits of arthroscopy and Brostrom were discussed with her and she elected to proceed. Once consent was obtained, she was taken to the operating room. After adequate anesthesia, she was placed on operating room table with a hip bump. The leg was prepped and draped in a standard sterile fashion up to a well-padded proximal thigh tourniquet. The ankle was then identified and insufflated with 0.25% plain Marcaine. The standard anterolateral portal was established after making a skin incision and blunt dissection down to the capsule. The scope was introduced into the ankle. Diagnostic findings, the talar dome was intact. With the exception of the anteromedial corner, which did show some 50% thickness loss of the chondral surface of about 3 mm in diameter, the remainder of the chondral surface of the distal tibia and fibula were intact. The ankle showed a mild synovitis. There was a Electronically Signed By: MELISSA DILLARD MD 04/17/25 1619 PATIENT NAME: SUNSHINE JORGE OPERATIVE REPORT DATE OF : 80 REPORT #: [id number] PHYSICIAN: MELISSA DILLARD MD PCP: ISABEL PICKETT PA-C REPORT IS CONFIDENTIAL AND NOT TO BE RELEASED WITHOUT AUTHORIZATION [facility] [address], [place] [address] Signed loose body in the posteromedial aspect of the ankle. DESCRIPTION OF THE OPERATION: The anteromedial portal was established again using a blunt technique. Shaver and graspers were used to debride the anterior synovium and remove the loose body. The chondral flaps on the talus were removed. I did not feel that this was a big enough lesion to warrant a microfracture, so the scope was withdrawn. The leg was exsanguinated with an Esmarch bandage and tourniquet inflated to 250 mmHg. A curved incision was made over the distal fibula extending distally and anteriorly. This was carried through skin and subcutaneous tissue. The capsule and remaining ligament were elevated off the distal fibula. This allowed us to enter the joint. The extensor retinaculum was then mobilized so that it could be brought up to be incorporated in the repair. The SwiveLock was then drilled into the talar neck for the Arthrex directions. This was tapped and SwiveLock was deployed. However, the screw did not deploy, just the tip of it. However, this was quite stable and I elected to just leave that in position. I was unable to pull it out. The two FiberTaks were then placed in the anteroinferior fibula and inferior fibula at the origins of the CFL and ATFL. The sutures were then brought through the capsule remaining ATFL and the extensor retinaculum. The ankle was then brought into 15 degrees of flexion and slight eversion. The FiberTak sutures were tied down securely. Once these were completed, the ankle internal brace was placed through a second drill hole in the distal fibula, deploying a second SwiveLock. The ankle was quite stable with 15 degrees of dorsiflexion and 35 degrees of plantar flexion at the end of the procedure. The anterior drawer was negative. All suture ends were cut and the wound was copiously irrigated. The periosteum was then sewed down over the entire thing using #2-0 FiberWire. The subcutaneous tissue with 2-0 Monocryl and the skin with 3-0 Stratafix. All wounds including the arthroscopy incisions were then closed with Dermabond and Steri-Strips. The wounds were dressed with an Allevyn and an Alfredo wrap. She was placed in a fracture boot. She tolerated the procedure well. All sponge, needle, and instrument counts were correct. Melissa Dillard MD BA/CARLOSL /[id number] Electronically Signed By: MELISSA DILLARD MD 04/17/25 1619 PATIENT NAME: SUNSHINE JORGE OPERATIVE REPORT DATE OF : 80 REPORT #: [id number] PHYSICIAN: MELISSA DILLARD MD PCP: ISABEL PICKETT PA-C REPORT IS CONFIDENTIAL AND NOT TO BE RELEASED WITHOUT AUTHORIZATION [facility] [address] [place], [place] [address] Signed Copies: ~ Electronically Signed By: MELISSA DILLARD MD 04/17/25 1619 PATIENT NAME: SUNSHINE JORGE MARTINEZ OPERATIVE REPORT DATE OF : 80 REPORT #: [id number] PHYSICIAN: MELISSA DILLARD MD PCP: ISABEL PICKETT PA-C REPORT IS CONFIDENTIAL AND NOT TO BE RELEASED WITHOUT AUTHORIZATION
== END 2025-04-14 16:00 | disposition home or self-care (01) ==
LOC: DS 10:24
PROVIDERS: ATTEND Specialist
PROC: 3E0T3BZ Introduction of Anesthetic Agent into Peripheral Nerves and Plexi, Percutaneous Approach (ICD-10-PCS; 2025-04-14)
PROC: 3E0T3BZ Introduction of Anesthetic Agent into Peripheral Nerves and Plexi, Percutaneous Approach (ICD-10-PCS; 2025-04-14)
PROC: 0MQR0ZZ Repair Left Ankle Bursa and Ligament, Open Approach (ICD-10-PCS; principal; 2025-04-14 12:50)
PROC: 0SBG4ZZ Excision of Left Ankle Joint, Percutaneous Endoscopic Approach (ICD-10-PCS; 2025-04-14 12:50)
DX: M25.372 Other instability, left ankle (principal); M94.272 Chondromalacia, left ankle and joints of left foot; I10 Essential (primary) hypertension; Z88.1 Allergy status to other antibiotic agents
CPT/HCPCS: 01470; 64447; C1713; J0688; J1100; J2003; J2250; J2405; J2704; J2795; J7121

== ENCOUNTER 2025-04-19 12:56 | Emergency (ER) | payer OTHER ==
[~2025-04-19] VITALS: Ht 170.2 cm; Wt 87.0 kg
[~2025-04-19 12:56] MED LIST changes: -CEFAZOLIN SODIUM 2 GM in SODIUM CHLORIDE 0.9% 100 ML IV SCH; +HYDROCODON-ACE1 EA11 PO; -IBLOOD GLUCOSE TEST STRIP 1 EA TEST VI PRN; -LACTATED RINGER'S 1,000 ML IV SCH; -LIDOCAINE HCL 1% 5 ML SDV INJ ONE
[2025-04-19 14:44] VITALS: BP 137/87
== END 2025-04-19 14:48 | disposition home or self-care (01) ==
LOC: ED 12:56
DX: M79.661 Pain in right lower leg (principal); I10 Essential (primary) hypertension; E03.9 Hypothyroidism, unspecified; Z98.890 Other specified postprocedural states; Z87.891 Personal history of nicotine dependence; Z88.2 Allergy status to sulfonamides; Z88.1 Allergy status to other antibiotic agents; Z79.899 Other long term (current) drug therapy
CPT/HCPCS: 99283-25